=== PATIENT | male | born 1960 | race Caucasian/White ===

== ENCOUNTER 2017-12-18 16:49 | Inpatient (IN) | payer SELFPAY ==
[~2017-12-18] VITALS: Ht 175.3 cm; Wt 83.2 kg
[2017-12-18 17:36] LABS: Basophils # (auto) 0.1 uL; Basophils % (auto) 0.9 % (0.0-2.0); Eosinophils # (auto) 0.1 uL; Eosinophils % (auto) 0.6 % (0.0-7.0); Hemoglobin 15.2 g/dL (13.5-17.5); Lymphocytes # (auto) 2.7 uL; Mean Corpuscular Hemoglobin 31.2 pg (28.0-32.0); Mean Corpuscular Hgb Conc. 33.7 g/dL (32.0-36.0); Mean Corpuscular Volume 92.8 fL (80.0-100.0); Monocytes # (auto) 0.6 uL; Neutrophils # (auto) 7.9 uL; Neutrophils % (auto) 69.5 % (37.0-80.0); Nucleated Red Blood Cells % 0.1 %; Platelet Count (auto) 238 10^3/uL (140-450); Red Blood Cells 4.85 10^6/uL (4.5-5.90); Red Cell Distribution Width 14.7 % (11.8-14.3); White Blood Cell 11.3 10^3/uL (4.4-10.8)
[2017-12-18 17:52] LABS: Alanine Aminotransferase 30 U/L (16-61); Albumin 3.9 g/dL (3.4-5.0); Anion Gap 11 (5-15); Aspartate Aminotransferase 19 U/L (15-37); BUN/Creatinine Ratio 11.7; Blood Alcohol < 3.0 mg/dL (0-5); Blood Urea Nitrogen 11 mg/dL (7-18); Calcium 7.8 mg/dL (8.5-10.1); Carbon Dioxide 25 mmol/L (21-32); Chloride 94 mmol/L (98-107); GFR African American 107 mL/min; GFR Non-African American 89 mL/min; Glucose 86 mg/dL (74-106); Magnesium 1.9 mg/dL (1.6-2.6); Potassium 3.6 mmol/L (3.5-5.1); Sodium 130 mmol/L (136-145)
[2017-12-18 18:09] LABS: Alkaline Phosphatase 67 U/L (45-117); Bilirubin, Total 0.9 mg/dL (0.2-1.0); Total Protein 7.3 g/dL (6.4-8.2)
[2017-12-18 19:18] LABS: Alcohol, Urine < 3.0 mg/dL (0-5); Amphetamine Screen, Urine NEGATIVE (NEGATIVE); Barbiturate Scree,Urine NEGATIVE (NEGATIVE); Benzodiazephine Screen, Urine NEGATIVE (NEGATIVE); Cannabinoid Screen, Urine NEGATIVE (NEGATIVE); Cocaine Screen, Urine NEGATIVE (NEGATIVE); Opiate Scree,Urine NEGATIVE (NEGATIVE); Phencyclidine Screen, Urine NEGATIVE (NEGATIVE)
[2017-12-18 20:09] LABS: INR 1.03 (0.9-1.15); Partial Thromboplastin Time 27.2 sec (23.78-33.04)
[2017-12-18] MEDS ORDERED: THIAMINE 100mg/ml INJ (200mg/2ml VIAL) IV ONE (22:45)
[2017-12-18] MEDS ORDERED: LORazepam 2MG/ML-1ML VIAL IV ONE (22:45)
[2017-12-18] MEDS ORDERED: SODIUM CHLORIDE 0.9% 1,000 ML IV ONE (22:45)
[2017-12-18] MEDS ORDERED: HYDROcodone-ACET 5/325MG TAB PO PRN (23:00)
[2017-12-18] MEDS ORDERED: ACETAMINOPHEN 325 MG TAB PO PRN (23:00)
[2017-12-18] MEDS ORDERED: ONDANSETRON HCL 4 MG/2 ML VIAL IV PRN (23:00)
[2017-12-18 23:55] VITALS: BP 145/95
[2017-12-19] MEDS: chlordiazePOXIDE HCL 5 MG CAP PO PRN ×2 (00:29→08:30)
[2017-12-19] MEDS: TEMAZEPAM 15 MG CAP PO PRN ×2 (00:29→22:25)
[2017-12-19 04:40] VITALS: BP 104/56
[2017-12-19 07:20] LABS: Basophils # (auto) 0 uL; Basophils % (auto) 0.5 % (0.0-2.0); Eosinophils # (auto) 0.1 uL; Hematocrit 42.1 % (41.0-53.0); Hemoglobin 14.5 g/dL (13.5-17.5); Lymphocytes # (auto) 2.3 uL; Lymphocytes % (auto) 30.4 % (10.0-50.0); Mean Corpuscular Hgb Conc. 34.4 g/dL (32.0-36.0); Monocytes # (auto) 0.6 uL; Monocytes % (auto) 7.2 % (0.0-12.0); Neutrophils # (auto) 4.7 uL; Neutrophils % (auto) 60.9 % (37.0-80.0); Platelet Count (auto) 199 10^3/uL (140-450); Red Blood Cells 4.53 10^6/uL (4.5-5.90); Red Cell Distribution Width 14.6 % (11.8-14.3); White Blood Cell 7.7 10^3/uL (4.4-10.8)
[2017-12-19 07:36] LABS: Potassium 3.6 mmol/L (3.5-5.1)
[2017-12-19 07:43] LABS: Albumin 3.4 g/dL (3.4-5.0); BUN/Creatinine Ratio 15.6; Bilirubin, Total 1.2 mg/dL (0.2-1.0); Calcium 8.4 mg/dL (8.5-10.1); Total Protein 6.6 g/dL (6.4-8.2)
[2017-12-19 09:00] VITALS: BP 103/63
[2017-12-19] MEDS ORDERED: POTASSIUM CHL 20 Meq TABLET PO ONE (10:00)
[2017-12-19] MEDS: FOLIC ACID 1 MG TAB PO SCH (10:57)
[2017-12-19] MEDS: THIAMINE HCL 100 MG TAB PO SCH (10:57)
[2017-12-19] MEDS: FAMOTIDINE 20 MG TAB PO SCH ×2 (10:58→22:00)
[2017-12-19] MEDS: SODIUM CHLORIDE 0.9% 1,000 ML IV SCH ×2 (11:00→12:20)
[2017-12-19] MEDS: chlordiazePOXIDE HCL 25 MG CAP PO SCH ×2 (11:17→18:09)
[2017-12-19 13:00] VITALS: BP 137/81
[2017-12-19] MEDS ORDERED: LORA-654 PO (13:51)
[2017-12-19 17:00] VITALS: BP 133/87
[2017-12-19 21:46] VITALS: BP 107/74
[2017-12-20] MEDS: SODIUM CHLORIDE 0.9% 1,000 ML IV SCH ×2 (01:40→15:00)
[2017-12-20] MEDS: chlordiazePOXIDE HCL 25 MG CAP PO SCH ×3 (02:03→22:53)
[2017-12-20 04:54] VITALS: BP 105/62
[2017-12-20 07:37] LABS: BUN/Creatinine Ratio 13.9; Potassium 4.9 mmol/L (3.5-5.1)
[2017-12-20 08:00] VITALS: BP 135/75
[2017-12-20 08:42] VITALS: BP 135/75
[2017-12-20] MEDS: THIAMINE HCL 100 MG TAB PO SCH (10:24)
[2017-12-20] MEDS: FOLIC ACID 1 MG TAB PO SCH (10:24)
[2017-12-20] MEDS: FAMOTIDINE 20 MG TAB PO SCH ×2 (10:26→22:00)
[2017-12-20 10:54] VITALS: BP 125/78
[2017-12-20 16:29] VITALS: BP 141/83
[2017-12-20 22:00] VITALS: BP 117/45
[2017-12-21 05:33] VITALS: BP 123/66
[2017-12-21] MEDS: SODIUM CHLORIDE 0.9% 1,000 ML IV SCH ×2 (06:30→18:10)
[2017-12-21 08:28] VITALS: BP 132/74
[2017-12-21] MEDS ORDERED: chlordiazePOXIDE HCL 25 MG CAP PO SCH (10:00)
[2017-12-21] MEDS: FAMOTIDINE 20 MG TAB PO SCH ×3 (10:00→21:48)
[2017-12-21] MEDS: FOLIC ACID 1 MG TAB PO SCH (10:26)
[2017-12-21] MEDS: THIAMINE HCL 100 MG TAB PO SCH (10:27)
[2017-12-21] MEDS ORDERED: chlordiazePOXIDE HCL 25 MG CAP PO PRN (12:15)
[2017-12-21 12:48] VITALS: BP 110/69
[2017-12-21 16:34] VITALS: BP 111/74
[2017-12-21] MEDS: TEMAZEPAM 15 MG CAP PO PRN (21:48)
[2017-12-21 22:00] VITALS: BP 117/72
[2017-12-22 05:00] VITALS: BP 126/73
[2017-12-22] MEDS: SODIUM CHLORIDE 0.9% 1,000 ML IV SCH (06:31)
[2017-12-22 06:49] LABS: Basophils # (auto) 0.1 uL; Basophils % (auto) 0.7 % (0.0-2.0); Eosinophils # (auto) 0.2 uL; Eosinophils % (auto) 2.8 % (0.0-7.0); Hematocrit 41.7 % (41.0-53.0); Hemoglobin 14.2 g/dL (13.5-17.5); Lymphocytes # (auto) 2.4 uL; Lymphocytes % (auto) 29.2 % (10.0-50.0); Mean Corpuscular Hemoglobin 32.2 pg (28.0-32.0); Mean Corpuscular Hgb Conc. 34.2 g/dL (32.0-36.0); Mean Corpuscular Volume 94.1 fL (80.0-100.0); Monocytes # (auto) 0.6 uL; Monocytes % (auto) 7.3 % (0.0-12.0); Neutrophils # (auto) 4.9 uL; Platelet Count (auto) 202 10^3/uL (140-450); Red Blood Cells 4.43 10^6/uL (4.5-5.90); White Blood Cell 8.1 10^3/uL (4.4-10.8)
[2017-12-22] MEDS ORDERED: chlordiazePOXIDE HCL 25 MG CAP PO SCH (07:00)
[2017-12-22 07:09] LABS: BUN/Creatinine Ratio 16.7; Calcium 8.4 mg/dL (8.5-10.1)
[2017-12-22 09:13] VITALS: BP 129/75
[2017-12-22] MEDS: FAMOTIDINE 20 MG TAB PO SCH (10:00)
[2017-12-22] MEDS: FOLIC ACID 1 MG TAB PO SCH (10:00)
[2017-12-22] MEDS: THIAMINE HCL 100 MG TAB PO SCH (10:00)
== END 2017-12-22 12:50 | disposition home or self-care (01) | DRG 313 ==
LOC: ER 16:49 → EDBD 16:49 → OVERFLOW 16:50 → CENTRAL 23:36
PROVIDERS: ADMIT Nurse Practitioner; ATTEND Internal Medicine
DX: R07.9 Chest pain, unspecified (principal); F41.9 Anxiety disorder, unspecified; E83.51 Hypocalcemia; I12.9 Hypertensive chronic kidney disease with stage 1 through stage 4 chronic kidney disease, or unspecified chronic kidney disease; N18.2 Chronic kidney disease, stage 2 (mild); F10.10 Alcohol abuse, uncomplicated
CPT/HCPCS: 36415; 71045; 80048; 80053; 80307; 80320; 83735; 84484; 85025; 85379; 85610; 85730; 93005; 94761; 96360

== ENCOUNTER 2018-02-26 08:11 | Emergency (ER) | payer MEDICAID ==
[~2018-02-26] VITALS: Ht 177.8 cm; Wt 81.6 kg
[~2018-02-26 08:11] MED LIST: LORA-654 PO
[2018-02-26 09:57] LABS: Basophils # (auto) 0.1 uL; Basophils % (auto) 1.2 % (0.0-2.0); Eosinophils # (auto) 0.2 uL; Eosinophils % (auto) 2.1 % (0.0-7.0); Hematocrit 47.9 % (41.0-53.0); Lymphocytes # (auto) 2.1 uL; Lymphocytes % (auto) 23.6 % (10.0-50.0); Mean Corpuscular Hemoglobin 31.2 pg (28.0-32.0); Mean Corpuscular Hgb Conc. 33.3 g/dL (32.0-36.0); Mean Corpuscular Volume 93.7 fL (80.0-100.0); Monocytes # (auto) 0.6 uL; Monocytes % (auto) 6.8 % (0.0-12.0); Neutrophils # (auto) 5.9 uL; Neutrophils % (auto) 66.3 % (37.0-80.0); Nucleated Red Blood Cells % 0.1 %; Platelet Count (auto) 262 10^3/uL (140-450); Red Blood Cells 5.11 10^6/uL (4.5-5.90); White Blood Cell 8.8 10^3/uL (4.4-10.8)
[2018-02-26 10:02] LABS: Albumin 4.4 g/dL (3.4-5.0); Anion Gap 5 (5-15); Blood Urea Nitrogen 10 mg/dL (7-18); Carbon Dioxide 28 mmol/L (21-32); Chloride 102 mmol/L (98-107); Glucose 97 mg/dL (74-106); Potassium 4.7 mmol/L (3.5-5.1); Sodium 135 mmol/L (136-145)
[2018-02-26 10:07] LABS: Alanine Aminotransferase 34 U/L (16-61); Alkaline Phosphatase 71 U/L (45-117); Aspartate Aminotransferase 19 U/L (15-37); BUN/Creatinine Ratio 10.1; Bilirubin, Total 0.7 mg/dL (0.2-1.0); GFR African American 101 mL/min; GFR Non-African American 83 mL/min; Total Protein 8.2 g/dL (6.4-8.2)
[2018-02-26 10:29] LABS: INR 0.96 (0.9-1.15); Partial Thromboplastin Time 26.7 sec (23.78-33.04); Prothrombin Time 10.3 sec (9.27-12.13)
[2018-02-26] MEDS ORDERED: SODIUM CHLORIDE 0.9% 1,000 ML IV ONE ×2 (10:31)
[2018-02-26] MEDS ORDERED: chlordiazePOXIDE HCL 25 MG CAP PO ONE (10:45)
[2018-02-26] MEDS ORDERED: THIAMINE 100mg/ml INJ (200mg/2ml VIAL) IV ONE (10:45)
[2018-02-26] MEDS ORDERED: IBUPROFEN 400 MG TAB PO ONE (12:15)
[2018-02-26 12:19] VITALS: BP 142/85
== END 2018-02-26 13:00 | disposition home or self-care (01) ==
LOC: EDBD 08:11 → ER 08:11
DX: F10.129 Alcohol abuse with intoxication, unspecified (principal); F41.9 Anxiety disorder, unspecified; I10 Essential (primary) hypertension
CPT/HCPCS: 36415; 80053; 80320; 84484; 85025; 85379; 85610; 85730; 93005; 96374; 99284; J3411; J7030

== ENCOUNTER 2018-07-10 21:19 | Emergency (ER) | payer MEDICAID ==
[~2018-07-10] VITALS: Ht 177.8 cm; Wt 81.6 kg
[2018-07-10 22:09] LABS: Basophils # (auto) 0.1 uL; Basophils % (auto) 1.1 % (0.0-2.0); Eosinophils # (auto) 0.1 uL; Eosinophils % (auto) 0.9 % (0.0-7.0); Lymphocytes # (auto) 2.7 uL; Lymphocytes % (auto) 34.9 % (10.0-50.0); Mean Corpuscular Hemoglobin 31.6 pg (28.0-32.0); Mean Corpuscular Hgb Conc. 34.1 g/dL (32.0-36.0); Mean Corpuscular Volume 92.6 fL (80.0-100.0); Monocytes # (auto) 0.4 uL; Monocytes % (auto) 5.4 % (0.0-12.0); Neutrophils # (auto) 4.5 uL; Neutrophils % (auto) 57.7 % (37.0-80.0); Nucleated Red Blood Cells % 0.1 %; Platelet Count (auto) 264 10^3/uL (140-450); Red Blood Cells 4.75 10^6/uL (4.5-5.90); Red Cell Distribution Width 14.1 % (11.8-14.3); White Blood Cell 7.8 10^3/uL (4.4-10.8)
[2018-07-10 22:25] LABS: INR 0.98 (0.9-1.15); Partial Thromboplastin Time 27.3 sec (23.78-33.04); Prothrombin Time 10.5 sec (9.27-12.13)
[2018-07-10 22:29] LABS: Alanine Aminotransferase 30 U/L (16-61); Albumin 3.6 g/dL (3.4-5.0); Anion Gap 13 (5-15); Aspartate Aminotransferase 18 U/L (15-37); BUN/Creatinine Ratio 11.9; Blood Urea Nitrogen 10 mg/dL (7-18); Carbon Dioxide 20 mmol/L (21-32); Chloride 105 mmol/L (98-107); GFR African American 122 mL/min; GFR Non-African American 101 mL/min; Glucose 92 mg/dL (74-106); Potassium 3.5 mmol/L (3.5-5.1); Sodium 138 mmol/L (136-145)
[2018-07-10 22:35] LABS: Alkaline Phosphatase 66 U/L (45-117); Bilirubin, Total 0.9 mg/dL (0.2-1.0)
[2018-07-11 08:30] VITALS: BP 154/94
[2018-07-11 08:55] LABS: Alcohol, Urine < 3.0 mg/dL (0-5); Amphetamine Screen, Urine NEGATIVE (NEGATIVE); Barbiturate Scree,Urine NEGATIVE (NEGATIVE); Benzodiazephine Screen, Urine NEGATIVE (NEGATIVE); Cannabinoid Screen, Urine NEGATIVE (NEGATIVE); Cocaine Screen, Urine NEGATIVE (NEGATIVE); Opiate Scree,Urine NEGATIVE (NEGATIVE); Phencyclidine Screen, Urine NEGATIVE (NEGATIVE)
[2018-07-11] MEDS ORDERED: SODIUM CHLORIDE 0.9% 1,000 ML IV ONE (09:22)
[2018-07-11] MEDS ORDERED: THIAMINE 100mg/ml INJ (200mg/2ml VIAL) IM ONE (09:30)
[2018-07-11] MEDS ORDERED: chlordiazePOXIDE HCL 5 MG CAP PO ONE (09:45)
[2018-07-11] MEDS ORDERED: THIAMINE 100mg/ml INJ (200mg/2ml VIAL) IV ONE (09:45)
== END 2018-07-11 11:52 | disposition home or self-care (01) ==
LOC: EDBD 21:19 → ER 21:27
DX: R07.89 Other chest pain (principal); F10.229 Alcohol dependence with intoxication, unspecified; E03.9 Hypothyroidism, unspecified; I10 Essential (primary) hypertension
CPT/HCPCS: 36415; 71046; 80053; 80307; 80320; 83735; 83880; 84443; 84484; 85025; 85610; 85730; 93005; 96361; 96374; 99284; J3411; J7030

== ENCOUNTER 2018-12-14 11:11 | Emergency (ER) | payer MEDICAID ==
[~2018-12-14] VITALS: Ht 180.3 cm; Wt 77.1 kg
[~2018-12-14 11:11] MED LIST changes: -LORA-654 PO; +LORA0.5T12 PO
[2018-12-14] MEDS ORDERED: LORazepam 2MG/ML-1ML VIAL IV ONE ×2 (12:15→20:30)
[2018-12-14] MEDS ORDERED: SODIUM CHLORIDE 0.9% 1,000 ML IV ONE (12:15)
[2018-12-14 12:41] LABS: Basophils # (auto) 0.1 uL; Basophils % (auto) 0.6 % (0.0-2.0); Eosinophils # (auto) 0 uL; Hematocrit 46.5 % (41.0-53.0); Hemoglobin 15.9 g/dL (13.5-17.5); Lymphocytes # (auto) 2.1 uL; Lymphocytes % (auto) 15.1 % (10.0-50.0); Mean Corpuscular Hemoglobin 30.6 pg (28.0-32.0); Mean Corpuscular Hgb Conc. 34.2 g/dL (32.0-36.0); Mean Corpuscular Volume 89.5 fL (80.0-100.0); Monocytes # (auto) 0.8 uL; Monocytes % (auto) 5.9 % (0.0-12.0); Neutrophils # (auto) 11.1 uL; Neutrophils % (auto) 78.4 % (37.0-80.0); Platelet Count (auto) 303 10^3/uL (140-450); Red Cell Distribution Width 15.1 % (11.8-14.3); White Blood Cell 14.1 10^3/uL (4.4-10.8)
[2018-12-14 12:55] LABS: Albumin 3.9 g/dL (3.4-5.0); Calcium 8.1 mg/dL (8.5-10.1); Potassium 3.9 mmol/L (3.5-5.1)
[2018-12-14 12:59] LABS: BUN/Creatinine Ratio 22.2; Bilirubin, Total 0.8 mg/dL (0.2-1.0); Total Protein 8.1 g/dL (6.4-8.2)
[2018-12-14 13:04] LABS: Salicylate < 1.7 mg/dL (2.8-20.0)
[2018-12-14 13:07] LABS: Acetaminophen < 2.0 ug/mL (10-30)
[2018-12-14 14:06] LABS: Urine Bacteria NONE SEEN /hpf (None Seen); Urine Blood Negative /uL (Negative); Urine WBC <1 /hpf (0 - 3)
[2018-12-14 14:14] LABS: Amphetamine Screen, Urine NEGATIVE (NEGATIVE); Barbiturate Scree,Urine NEGATIVE (NEGATIVE); Benzodiazephine Screen, Urine NEGATIVE (NEGATIVE); Cannabinoid Screen, Urine NEGATIVE (NEGATIVE); Cocaine Screen, Urine NEGATIVE (NEGATIVE); Opiate Scree,Urine NEGATIVE (NEGATIVE); Phencyclidine Screen, Urine NEGATIVE (NEGATIVE)
[2018-12-14] MEDS ORDERED: THIAMINE 100mg/ml INJ (200mg/2ml VIAL) IV ONE (17:15)
[2018-12-14] MEDS ORDERED: FOLIC ACID 1 MG, MULTIPLE VITAMIN 10 ML, MAGNESIUM SULF SDV 50% 8 MEQ, THIAMINE INJ 100... INJ ONE ×5 (17:45)
[2018-12-14] MEDS ORDERED: PANTOPRAZOLE 40 MG TAB PO ONE (20:30)
[2018-12-15 05:05] VITALS: BP 132/78
[2018-12-15] MEDS ORDERED: FOLIC ACID 1 MG, MULTIPLE VITAMIN 10 ML, MAGNESIUM SULF SDV 50% 8 MEQ, THIAMINE INJ 100... INJ SCH ×5 (12:00)
== END 2018-12-15 04:59 | disposition home or self-care (01) ==
LOC: EDBD 11:11 → ER 11:11
DX: R07.89 Other chest pain (principal); F10.129 Alcohol abuse with intoxication, unspecified; R11.2 Nausea with vomiting, unspecified; Y90.7 Blood alcohol level of 200-239 mg/100 ml
CPT/HCPCS: 36415; 80053; 80307; 80320; 80329; 81001; 84484; 85025; 93005; 94761; 96361; 96365; 96366; 96375; 96376; 99284; J2060; J3411; J3475; J7030

== ENCOUNTER 2019-02-12 10:52 | Emergency (ER) | payer MEDICAID ==
[~2019-02-12] VITALS: Ht 152.4 cm; Wt 81.6 kg
[2019-02-12] MEDS ORDERED: SODIUM CHLORIDE 0.9% 1,000 ML IVB ONE (11:38)
[2019-02-12 12:59] LABS: Basophils # (auto) 0.1 uL; Basophils % (auto) 0.9 % (0.0-2.0); Eosinophils # (auto) 0.1 uL; Eosinophils % (auto) 0.9 % (0.0-7.0); Hematocrit 43.9 % (41.0-53.0); Hemoglobin 15.2 g/dL (13.5-17.5); Lymphocytes # (auto) 2.4 uL; Mean Corpuscular Hemoglobin 31.7 pg (28.0-32.0); Mean Corpuscular Hgb Conc. 34.6 g/dL (32.0-36.0); Mean Corpuscular Volume 91.5 fL (80.0-100.0); Monocytes # (auto) 0.4 uL; Monocytes % (auto) 4.7 % (0.0-12.0); Neutrophils # (auto) 5.6 uL; Neutrophils % (auto) 65.5 % (37.0-80.0); Nucleated Red Blood Cells % 0.4 %; Platelet Count (auto) 244 10^3/uL (140-450); Red Blood Cells 4.79 10^6/uL (4.5-5.90); Red Cell Distribution Width 15.1 % (11.8-14.3); White Blood Cell 8.5 10^3/uL (4.4-10.8)
[2019-02-12 13:06] LABS: Urine WBC None Seen /hpf (0 - 3)
[2019-02-12 13:30] LABS: Albumin 3.8 g/dL (3.4-5.0); Calcium 8.1 mg/dL (8.5-10.1)
[2019-02-12 13:33] LABS: BUN/Creatinine Ratio 17.6; Bilirubin, Total 0.8 mg/dL (0.2-1.0); Total Protein 7.1 g/dL (6.4-8.2)
[2019-02-12 13:36] LABS: Urine Bacteria NONE SEEN /hpf (None Seen); Urine Blood Negative /uL (Negative); Urine Specific Gravity 1.003 (1.001-1.035)
[2019-02-12 13:41] LABS: Amphetamine Screen, Urine NEGATIVE (NEGATIVE); Barbiturate Scree,Urine NEGATIVE (NEGATIVE); Benzodiazephine Screen, Urine NEGATIVE (NEGATIVE); Cannabinoid Screen, Urine NEGATIVE (NEGATIVE); Cocaine Screen, Urine NEGATIVE (NEGATIVE); Opiate Scree,Urine NEGATIVE (NEGATIVE); Phencyclidine Screen, Urine NEGATIVE (NEGATIVE)
[2019-02-12] MEDS ORDERED: LORazepam 0.5 MG TAB PO ONE ×2 (14:00→17:45)
[2019-02-12] MEDS ORDERED: LORazepam 2MG/ML-1ML VIAL IV ONE (14:00)
[2019-02-12] MEDS ORDERED: THIAMINE HCL 100 MG TAB PO ONE (14:30)
[2019-02-12] MEDS ORDERED: ONDANSETRON ODT 4 MG TAB PO ONE (17:45)
[2019-02-12] MEDS ORDERED: LISINOPRIL 10 MG TAB PO ONE (19:00)
[2019-02-12 20:47] VITALS: BP 143/81
[2019-02-13] MEDS ORDERED: FOLIC ACID 1 MG, MULTIPLE VITAMIN 10 ML, MAGNESIUM SULF SDV 50% 8 MEQ, THIAMINE INJ 100... INJ SCH ×5 (12:00)
== END 2019-02-12 20:53 | disposition home or self-care (01) ==
LOC: EDBD 10:52 → ER 10:59
DX: F13.239 Sedative, hypnotic or anxiolytic dependence with withdrawal, unspecified (principal); F10.10 Alcohol abuse, uncomplicated
CPT/HCPCS: 36415; 80053; 80307; 80320; 81001; 83735; 85025; 96374; 99284; J2060; J7030; Q0162

== ENCOUNTER 2019-08-10 16:02 | Inpatient (IN) | payer MEDICAID ==
[~2019-08-10] VITALS: Ht 175.3 cm; Wt 87.6 kg
[~2019-08-10 16:02] MED LIST changes: +FOLI1TAB6 PO; +METO25TA5 PO; +MULTTAB61 PO; +PANT40TA2 PO; +THIA50CA PO
[2019-08-10] MEDS ORDERED: SODIUM CHLORIDE 0.9% 1,000 ML IV ONE ×2 (16:08)
[2019-08-10] MEDS ORDERED: chlordiazePOXIDE HCL 5 MG CAP PO ONE (16:15)
[2019-08-10] MEDS ORDERED: THIAMINE 100mg/ml INJ (200mg/2ml VIAL) IV ONE (16:15)
[2019-08-10 16:37] LABS: Basophils # (auto) 0.1 10 ^3/uL (0-0.2); Basophils % (auto) 1.1 % (0.0-2.0); Eosinophils # (auto) 0 10 ^3/uL (0-0.8); Eosinophils % (auto) 0.3 % (0.0-7.0); Hematocrit 40.7 % (41.0-53.0); Hemoglobin 13.9 g/dL (13.5-17.5); Lymphocytes # (auto) 1.2 10 ^3/uL (0.4-5.4); Lymphocytes % (auto) 22.1 % (10.0-50.0); Mean Corpuscular Hemoglobin 31.1 pg (28.0-32.0); Mean Corpuscular Hgb Conc. 34.1 g/dL (32.0-36.0); Mean Corpuscular Volume 91.4 fL (80.0-100.0); Monocytes # (auto) 0.3 10 ^3/uL (0-1.3); Monocytes % (auto) 5.8 % (0.0-12.0); Neutrophils # (auto) 3.9 10 ^3/uL (1.6-8.6); Neutrophils % (auto) 70.7 % (37.0-80.0); Platelet Count (auto) 223 10^3/uL (140-450); Red Blood Cells 4.46 10^6/uL (4.5-5.90); Red Cell Distribution Width 14.1 % (11.8-14.3); White Blood Cell 5.6 10^3/uL (4.4-10.8)
[2019-08-10 16:53] LABS: Albumin 3.6 g/dL (3.4-5.0); Anion Gap 15 (5-15); Blood Urea Nitrogen 14 mg/dL (7-18); Calcium 7.5 mg/dL (8.5-10.1); Carbon Dioxide 20 mmol/L (21-32); Chloride 94 mmol/L (98-107); Glucose 69 mg/dL (74-106); Sodium 129 mmol/L (136-145)
[2019-08-10 16:58] LABS: Alanine Aminotransferase 64 U/L (16-61); Alkaline Phosphatase 66 U/L (45-117); Aspartate Aminotransferase 83 U/L (15-37); BUN/Creatinine Ratio 15.9; Bilirubin, Total 0.8 mg/dL (0.2-1.0); GFR African American 115 mL/min; GFR Non-African American 95 mL/min; Total Protein 7.1 g/dL (6.4-8.2)
[2019-08-10 18:02] LABS: Urine WBC None Seen /hpf (0 - 3)
[2019-08-10 18:19] LABS: Urine Bacteria NONE SEEN /hpf (None Seen); Urine Blood Negative /uL (Negative); Urine Specific Gravity 1.005 (1.001-1.035)
[2019-08-10] MEDS ORDERED: MORPHINE SULF INJ 2 MG/ML SYRINGE 1ML IV PRN ×3 (18:45→21:00)
[2019-08-10] MEDS ORDERED: NITROGLYCERIN 0.4 MG SL TAB SL PRN ×2 (18:45→21:00)
[2019-08-10] MEDS ORDERED: LORazepam 2MG/ML-1ML VIAL IV ONE (19:15)
[2019-08-10 20:42] VITALS: BP 133/76
--- NOTE | 2019-08-10 20:42 | NUR ---
Telemetry admit from ER Patient admitted to Telemetry unit. Patient oriented to primary RN, unit, room, bed, and unit policies regarding patient care and visiting hours. Patient now on continuous telemetry monitoring, tele box #[id number] and telemetry reading on arrival to unit is sinus rhythm. Patient weighed by bedscale and encouraged to call if they need something. All questions and concerns addressed, patient verbalized understanding. Safety precautions maintained bed is in lowest position and locked, bed rails 2x. Call light and bedside table are within reach.
[2019-08-10] MEDS ORDERED: SOD CHL 0.45% 1,000 ML IV SCH (20:57)
[2019-08-10] MEDS ORDERED: METOCLOPRAMIDE HCL 5MG/ml INJ 2ml VIAL IV PRN (21:00)
[2019-08-10] MEDS ORDERED: ALUM & MAG HYDROX-SIMETH LIQ(MAALOX) 30 ML PO PRN (21:00)
[2019-08-10] MEDS ORDERED: TEMAZEPAM 15 MG CAP PO PRN (21:00)
[2019-08-10] MEDS ORDERED: HYDROcodone-ACET 5/325MG TAB PO PRN (21:00)
[2019-08-10] MEDS ORDERED: DOCUSATE SOD 100 MG CAP PO PRN (21:00)
[2019-08-10] MEDS ORDERED: LORazepam 2MG/ML-1ML VIAL IV PRN (21:00)
[2019-08-10] MEDS ORDERED: THIAMINE HCL 100 MG TAB PO ONE (21:00)
[2019-08-10] MEDS: METOPROLOL TARTRATE 25 MG TAB PO SCH (21:39)
[2019-08-10 22:00] VITALS: BP 133/76
[2019-08-11 05:00] VITALS: BP 120/68
--- NOTE | 2019-08-11 07:28 | NUR ---
End of Shift Note Endorsed care to dayshift RN. At this time no s/s of distress or SOB, no complaints, patient responsive to name and touch.
[2019-08-11] MEDS: LORazepam 0.5 MG TAB PO SCH ×2 (07:51→14:00)
[2019-08-11 09:05] VITALS: BP 124/74
[2019-08-11] MEDS: METOPROLOL TARTRATE 25 MG TAB PO SCH (09:31)
[2019-08-11] MEDS ORDERED: MULTIPLE VITAMIN TAB PO SCH (10:00)
[2019-08-11] MEDS ORDERED: PANTOPRAZOLE 40 MG TAB PO SCH (10:00)
[2019-08-11] MEDS ORDERED: ENOXAPARIN SOD 40 MG/0.4 ML SYRINGE SC SCH (10:00)
[2019-08-11] MEDS ORDERED: FOLIC ACID 1 MG TAB PO SCH (10:00)
[2019-08-11] MEDS ORDERED: THIAMINE HCL 100 MG TAB PO SCH (10:00)
--- NOTE | 2019-08-11 11:30 | NUR ---
spoke with Dr. Nichole per Dr. Nichole if sodium is okay patient can go home.
[2019-08-11 11:51] LABS: Albumin 3.8 g/dL (3.4-5.0); Calcium 8.5 mg/dL (8.5-10.1); Potassium 3.9 mmol/L (3.5-5.1)
[2019-08-11 11:54] LABS: BUN/Creatinine Ratio 16.5; Bilirubin, Total 1.4 mg/dL (0.2-1.0); Total Protein 7.2 g/dL (6.4-8.2)
[2019-08-11 12:53] VITALS: BP 115/79
[2019-08-11 13:00] VITALS: BP 115/79
--- NOTE | 2019-08-11 13:43 | NUR ---
assessment re: ss consult ETOH use Patient is a 59 year old male who is alert and oriented. Patients cognitive abilities are intact. Prior to admission patient lived home with family and functioned independently. Patient informed me he is able to care for his own ADLs. Per patient he will return home to his prior living arrangements post discharge and family will transport him home. I informed patient of his ss consult for ETOH use. Patient informed me he has been drinking heavily for the past week, a fifth per day. I have provided patient with resources for inpatient and outpatient ETOH rehab facilities and also . Patient accepted resources. I informed patient he has a right to speak to a social group worker regarding all care. I informed patient he has a right to participate in any and all discharge planning. Patient does not have a POA and advanced directive. I have offered patient information on POA and advanced directives. I informed the patient the advantages and benefits of having an Advanced Directive. Patient verbalized understanding and agreed to discharge plan. Addendum: 08/11/19 at 1346 by Yvonne KEBEDE Amended: Links added.
--- NOTE | 2019-08-11 14:05 | NUR ---
Discharge instructions given as ordered. Encourage to follow up with Dr. Do in 1 week, pt will make his appointment, office is close for lunch. All questions and concerns addressed. Patient verbalized understanding. Medication reconciliation form completed and copy given to patient. IV removed with catheter intact, pressure dressing applied. Telemetry unit returned to ICU. Patient taken to vehicle via wheelchair with all personal belongings, accompanied by staff and family member. No distress noted at time of departure.
[2019-08-11 14:21] LABS: Urine Bacteria NONE SEEN /hpf (None Seen); Urine Blood Negative /uL (Negative); Urine Specific Gravity 1.022 (1.001-1.035); Urine WBC 1 /hpf (0 - 3)
[2019-08-11 14:34] LABS: Amphetamine Screen, Urine NEGATIVE (NEGATIVE); Barbiturate Scree,Urine NEGATIVE (NEGATIVE); Benzodiazephine Screen, Urine POSITIVE (NEGATIVE); Cannabinoid Screen, Urine NEGATIVE (NEGATIVE); Cocaine Screen, Urine NEGATIVE (NEGATIVE); Phencyclidine Screen, Urine NEGATIVE (NEGATIVE)
[2019-08-11 14:42] LABS: Opiate Scree,Urine NEGATIVE (NEGATIVE)
[2019-08-12] MEDS ORDERED: LORazepam 0.5 MG TAB PO SCH (08:00)
[2019-08-13] MEDS ORDERED: LORazepam 0.5 MG TAB PO SCH (08:00)
== END 2019-08-11 14:05 | disposition home or self-care (01) | DRG 775 ==
LOC: ER 16:02 → EDBD 16:02 → TELE 16:03 → TELE-CENTR 20:40
PROVIDERS: ADMIT Hospitalist; ATTEND Internal Medicine
DX: F10.239 Alcohol dependence with withdrawal, unspecified (principal); F10.229 Alcohol dependence with intoxication, unspecified; K70.10 Alcoholic hepatitis without ascites; E87.1 Hypo-osmolality and hyponatremia; E86.0 Dehydration; K29.20 Alcoholic gastritis without bleeding; F41.9 Anxiety disorder, unspecified; F32.9 Major depressive disorder, single episode, unspecified; I10 Essential (primary) hypertension; Z79.899 Other long term (current) drug therapy; Z82.49 Family history of ischemic heart disease and other diseases of the circulatory system
CPT/HCPCS: 36415; 71045; 80053; 80307; 81001; 84484; 85025; 93005; 96361; 96374; 96375; G0378

== ENCOUNTER 2019-11-25 11:41 | Inpatient (IN) | payer MEDICAID ==
[~2019-11-25] VITALS: Ht 175.3 cm; Wt 90.7 kg
[~2019-11-25 11:41] MED LIST changes: -LORA0.5T12 PO; +LORA0.5T20 PO; +MULT-1018 PO; -MULTTAB61 PO
[2019-11-25] MEDS ORDERED: SODIUM CHLORIDE 0.9% 1,000 ML IVB ONE (12:20)
[2019-11-25] MEDS ORDERED: FOLIC ACID 1 MG, MULTIPLE VITAMIN 10 ML, MAGNESIUM SULF SDV 50% 8 MEQ, THIAMINE INJ 100... INJ STA ×5 (12:20)
[2019-11-25] MEDS ORDERED: THIAMINE HCL 100 MG TAB PO ONE (12:30)
[2019-11-25 13:15] LABS: Basophils # (auto) 0.1 10 ^3/uL (0-0.2); Eosinophils # (auto) 0 10 ^3/uL (0-0.8); Eosinophils % (auto) 0.7 % (0.0-7.0); Hematocrit 44.3 % (41.0-53.0); Hemoglobin 14.8 g/dL (13.5-17.5); Lymphocytes # (auto) 1.5 10 ^3/uL (0.4-5.4); Lymphocytes % (auto) 22.1 % (10.0-50.0); Mean Corpuscular Hemoglobin 31.3 pg (28.0-32.0); Mean Corpuscular Hgb Conc. 33.4 g/dL (32.0-36.0); Mean Corpuscular Volume 93.9 fL (80.0-100.0); Monocytes # (auto) 0.3 10 ^3/uL (0-1.3); Monocytes % (auto) 4.4 % (0.0-12.0); Neutrophils % (auto) 71.8 % (37.0-80.0); Platelet Count (auto) 240 10^3/uL (140-450); Red Blood Cells 4.71 10^6/uL (4.5-5.90); Red Cell Distribution Width 15.3 % (11.8-14.3); White Blood Cell 6.9 10^3/uL (4.4-10.8)
[2019-11-25 13:40] LABS: Alanine Aminotransferase 94 U/L (16-61); Albumin 3.8 g/dL (3.4-5.0); Anion Gap 14 (5-15); Aspartate Aminotransferase 85 U/L (15-37); BUN/Creatinine Ratio 14.3; Blood Urea Nitrogen 14 mg/dL (7-18); Calcium 8.1 mg/dL (8.5-10.1); Carbon Dioxide 21 mmol/L (21-32); Chloride 103 mmol/L (98-107); GFR African American 101 mL/min; GFR Non-African American 84 mL/min; Glucose 75 mg/dL (74-106); Magnesium 1.8 mg/dL (1.6-2.6); Sodium 138 mmol/L (136-145)
[2019-11-25 13:45] LABS: Alkaline Phosphatase 68 U/L (45-117); Bilirubin, Total 0.7 mg/dL (0.2-1.0); Total Protein 7.6 g/dL (6.4-8.2)
[2019-11-25] MEDS ORDERED: LORazepam 2MG/ML-1ML VIAL IV ONE (15:30)
[2019-11-25] MEDS ORDERED: chlordiazePOXIDE HCL 25 MG CAP PO PRN (15:45)
[2019-11-25] MEDS ORDERED: MORPHINE SULF INJ 2 MG/ML SYRINGE 1ML IV PRN (15:45)
[2019-11-25] MEDS ORDERED: THIAMINE 100mg/ml INJ (200mg/2ml VIAL) IV ONE (15:45)
[2019-11-25] MEDS ORDERED: NITROGLYCERIN 0.4 MG SL TAB SL PRN (15:45)
[2019-11-25] MEDS ORDERED: PROMETHAZINE HCL 25 MG/ML 1ML IV PRN (17:00)
[2019-11-25] MEDS ORDERED: TEMAZEPAM 15 MG CAP PO PRN (17:00)
[2019-11-25] MEDS: SODIUM CHLORIDE 0.9% 1,000 ML IV SCH (18:13)
[2019-11-25] MEDS: ENOXAPARIN SOD 40 MG/0.4 ML SYRINGE SC SCH (18:14)
[2019-11-25] MEDS: chlordiazePOXIDE HCL 5 MG CAP PO SCH ×2 (18:14→23:19)
[2019-11-25 19:21] LABS: Amylase 35 U/L (25-115); CRP High Sensitivity 0.13 mg/dL (< 0.3); Lipase 206 U/L (73-393)
[2019-11-25] MEDS: traMADol HCL 50 MG TAB PO PRN (19:53)
[2019-11-25 20:26] LABS: INR 1.01 (0.9-1.15); Partial Thromboplastin Time 26.9 sec (23.0-31.2)
[2019-11-25 22:00] VITALS: BP 143/89
[2019-11-25] MEDS: FAMOTIDINE 20 MG TAB PO SCH (23:09)
[2019-11-25] MEDS: METOPROLOL TARTRATE 25 MG TAB PO SCH (23:09)
[2019-11-25] MEDS: MORPHINE SULF INJ 2 MG/ML SYRINGE 1ML IV PRN (23:11)
[2019-11-26] MEDS: SODIUM CHLORIDE 0.9% 1,000 ML IV SCH ×3 (00:46→16:46)
[2019-11-26 05:02] VITALS: BP 148/93
[2019-11-26] MEDS: chlordiazePOXIDE HCL 5 MG CAP PO SCH ×4 (05:40→23:23)
[2019-11-26 06:48] LABS: Potassium 3.7 mmol/L (3.5-5.1)
[2019-11-26 07:07] LABS: Albumin 3.5 g/dL (3.4-5.0); BUN/Creatinine Ratio 21.9; Bilirubin, Total 1.4 mg/dL (0.2-1.0); Calcium 8.9 mg/dL (8.5-10.1); Total Protein 6.9 g/dL (6.4-8.2)
[2019-11-26] MEDS: traMADol HCL 50 MG TAB PO PRN (07:11)
[2019-11-26 08:27] VITALS: BP 159/86
[2019-11-26] MEDS: FAMOTIDINE 20 MG TAB PO SCH ×2 (08:39→21:49)
[2019-11-26] MEDS: ASPirin 81 mg TAB PO SCH (08:39)
[2019-11-26] MEDS: METOPROLOL TARTRATE 25 MG TAB PO SCH ×2 (08:40→21:49)
[2019-11-26] MEDS: ENOXAPARIN SOD 40 MG/0.4 ML SYRINGE SC SCH (08:41)
[2019-11-26] MEDS: NITROGLYCERIN 0.2MG/HR TOPICAL PATCH TD SCH (08:43)
[2019-11-26] MEDS ORDERED: THIAMINE 100mg/ml INJ (200mg/2ml VIAL) IV SCH (10:00)
[2019-11-26] MEDS ORDERED: PANTOPRAZOLE 40 MG TAB PO ONE (12:15)
[2019-11-26 13:00] VITALS: BP 127/84
[2019-11-26] MEDS: FOLIC ACID 1 MG, MULTIPLE VITAMIN 10 ML, MAGNESIUM SULF SDV 50% 8 MEQ, THIAMINE INJ 100... INJ SCH ×5 (13:29)
[2019-11-26] MEDS: SUCRALFATE 1 GM/10 ML ORAL SUSP PO SCH ×2 (16:55→21:49)
[2019-11-26 17:00] VITALS: BP 131/84
[2019-11-26 22:02] VITALS: BP 141/98
[2019-11-27] MEDS: SODIUM CHLORIDE 0.9% 1,000 ML IV SCH ×3 (00:46→16:38)
[2019-11-27 05:14] VITALS: BP 138/89
[2019-11-27 05:23] LABS: Basophils # (auto) 0 10 ^3/uL (0-0.2); Basophils % (auto) 0.7 % (0.0-2.0); Eosinophils # (auto) 0.1 10 ^3/uL (0-0.8); Eosinophils % (auto) 2.6 % (0.0-7.0); Hematocrit 40.4 % (41.0-53.0); Hemoglobin 13.6 g/dL (13.5-17.5); Lymphocytes # (auto) 1.8 10 ^3/uL (0.4-5.4); Mean Corpuscular Hemoglobin 31.9 pg (28.0-32.0); Mean Corpuscular Hgb Conc. 33.7 g/dL (32.0-36.0); Mean Corpuscular Volume 94.5 fL (80.0-100.0); Monocytes # (auto) 0.3 10 ^3/uL (0-1.3); Monocytes % (auto) 7.7 % (0.0-12.0); Neutrophils # (auto) 1.8 10 ^3/uL (1.6-8.6); Platelet Count (auto) 193 10^3/uL (140-450); Red Blood Cells 4.28 10^6/uL (4.5-5.90)
[2019-11-27 05:39] LABS: BUN/Creatinine Ratio 11.8; Calcium 8.9 mg/dL (8.5-10.1); Potassium 3.8 mmol/L (3.5-5.1)
[2019-11-27] MEDS: chlordiazePOXIDE HCL 5 MG CAP PO SCH ×4 (06:00→23:35)
[2019-11-27] MEDS: SUCRALFATE 1 GM/10 ML ORAL SUSP PO SCH ×4 (06:39→22:00)
[2019-11-27] MEDS: traMADol HCL 50 MG TAB PO PRN (06:39)
[2019-11-27 08:00] VITALS: BP 140/90
[2019-11-27 08:40] VITALS: BP 140/90
[2019-11-27] MEDS: NITROGLYCERIN 0.2MG/HR TOPICAL PATCH TD SCH (10:00)
[2019-11-27] MEDS ORDERED: PANTOPRAZOLE 40 MG TAB PO SCH (10:00)
[2019-11-27] MEDS: ASPirin 81 mg TAB PO SCH (10:22)
[2019-11-27] MEDS: FAMOTIDINE 20 MG TAB PO SCH (10:22)
[2019-11-27] MEDS: ENOXAPARIN SOD 40 MG/0.4 ML SYRINGE SC SCH (10:23)
[2019-11-27] MEDS: METOPROLOL TARTRATE 25 MG TAB PO SCH ×2 (10:23→22:19)
[2019-11-27] MEDS: FOLIC ACID 1 MG, MULTIPLE VITAMIN 10 ML, MAGNESIUM SULF SDV 50% 8 MEQ, THIAMINE INJ 100... INJ SCH ×5 (12:54)
[2019-11-27 13:00] VITALS: BP 153/101
[2019-11-27 16:40] VITALS: BP 177/107
[2019-11-27] MEDS: MORPHINE SULF INJ 2 MG/ML SYRINGE 1ML IV PRN (18:41)
[2019-11-27 22:00] VITALS: BP 145/82
[2019-11-27] MEDS: PANTOPRAZOLE 40 MG TAB PO SCH (22:19)
[2019-11-28] MEDS: SODIUM CHLORIDE 0.9% 1,000 ML IV SCH ×2 (00:46→08:22)
[2019-11-28] MEDS: traMADol HCL 50 MG TAB PO PRN (03:57)
[2019-11-28 05:00] VITALS: BP 136/82
[2019-11-28] MEDS: chlordiazePOXIDE HCL 5 MG CAP PO SCH ×2 (06:00→13:53)
[2019-11-28 06:25] LABS: Basophils # (auto) 0 10 ^3/uL (0-0.2); Basophils % (auto) 0.8 % (0.0-2.0); Eosinophils # (auto) 0.1 10 ^3/uL (0-0.8); Eosinophils % (auto) 2.7 % (0.0-7.0); Hematocrit 41.6 % (41.0-53.0); Lymphocytes # (auto) 1.6 10 ^3/uL (0.4-5.4); Lymphocytes % (auto) 32.6 % (10.0-50.0); Mean Corpuscular Hemoglobin 32.1 pg (28.0-32.0); Mean Corpuscular Hgb Conc. 33.6 g/dL (32.0-36.0); Mean Corpuscular Volume 95.4 fL (80.0-100.0); Monocytes # (auto) 0.5 10 ^3/uL (0-1.3); Monocytes % (auto) 9.9 % (0.0-12.0); Neutrophils # (auto) 2.7 10 ^3/uL (1.6-8.6); Platelet Count (auto) 207 10^3/uL (140-450); Red Blood Cells 4.36 10^6/uL (4.5-5.90); Red Cell Distribution Width 15.8 % (11.8-14.3)
[2019-11-28] MEDS: SUCRALFATE 1 GM/10 ML ORAL SUSP PO SCH ×2 (06:32→11:11)
[2019-11-28 06:58] LABS: Potassium 3.8 mmol/L (3.5-5.1)
[2019-11-28 07:12] LABS: BUN/Creatinine Ratio 13.8; Calcium 9.2 mg/dL (8.5-10.1)
[2019-11-28 08:00] VITALS: BP 133/75
[2019-11-28] MEDS ORDERED: MIDAZOLAM HCL 5 MG/ML-1ML VIAL ONE (08:27)
[2019-11-28] MEDS ORDERED: fentaNYL CITRATE 100 MCG/2 ML VL ONE (08:27)
[2019-11-28] MEDS ORDERED: diphenhdrAMINE HCL 50 MG/1 ML VL ONE (08:27)
[2019-11-28] MEDS ORDERED: LIDOCAINE VISCOUS 2% 15ML UD ONE (08:27)
[2019-11-28] MEDS ORDERED: SODIUM CHLORIDE LOCK 10 ML ONE (08:27)
[2019-11-28 08:57] VITALS: BP 133/75
[2019-11-28] MEDS: ASPirin 81 mg TAB PO SCH (09:51)
[2019-11-28] MEDS: NITROGLYCERIN 0.2MG/HR TOPICAL PATCH TD SCH (10:00)
[2019-11-28] MEDS: ENOXAPARIN SOD 40 MG/0.4 ML SYRINGE SC SCH (10:02)
[2019-11-28] MEDS: PANTOPRAZOLE 40 MG TAB PO SCH (10:02)
[2019-11-28] MEDS: METOPROLOL TARTRATE 25 MG TAB PO SCH (10:02)
[2019-11-28 10:40] VITALS: BP 133/75
[2019-11-28] MEDS: FOLIC ACID 1 MG, MULTIPLE VITAMIN 10 ML, MAGNESIUM SULF SDV 50% 8 MEQ, THIAMINE INJ 100... INJ SCH ×5 (11:11)
[2019-11-28 13:00] VITALS: BP 137/96
== END 2019-11-28 14:30 | disposition home or self-care (01) | DRG 775 ==
LOC: ER 11:41 → EDBD 11:41 → TELE 11:42 → TELE-WESTW 19:28
PROVIDERS: ADMIT Internal Medicine; ATTEND Internal Medicine
DX: F10.121 Alcohol abuse with intoxication delirium (principal); R65.10 Systemic inflammatory response syndrome (SIRS) of non-infectious origin without acute organ dysfunction; Z20.828 Contact with and (suspected) exposure to other viral communicable diseases; Y90.8 Blood alcohol level of 240 mg/100 ml or more; K29.20 Alcoholic gastritis without bleeding; F32.9 Major depressive disorder, single episode, unspecified; E78.5 Hyperlipidemia, unspecified; E03.9 Hypothyroidism, unspecified; I10 Essential (primary) hypertension; E66.9 Obesity, unspecified; F41.9 Anxiety disorder, unspecified; K76.0 Fatty (change of) liver, not elsewhere classified; K70.9 Alcoholic liver disease, unspecified; Z68.29 Body mass index [BMI] 29.0-29.9, adult; Z82.0 Family history of epilepsy and other diseases of the nervous system; Z82.49 Family history of ischemic heart disease and other diseases of the circulatory system
CPT/HCPCS: 36415; 71045; 76705; 80048; 80053; 80061; 80320; 82150; 82550; 82962; 83690; 83735; 84443; 84484; 85025; 85379; 85610; 85652; 85730; 86141; 87426; 93005; 93306; G0378; J2250

== ENCOUNTER 2019-12-21 01:15 | Emergency (ER) | payer MEDICAID ==
[~2019-12-21] VITALS: Ht 172.7 cm; Wt 99.8 kg
[~2019-12-21 01:15] MED LIST changes: -FOLI1TAB6 PO; -LORA0.5T20 PO; -MULT-1018 PO; -PANT40TA2 PO; -THIA50CA PO
[2019-12-21 01:40] LABS: Basophils # (auto) 0.1 10 ^3/uL (0-0.2); Basophils % (auto) 0.9 % (0.0-2.0); Eosinophils # (auto) 0 10 ^3/uL (0-0.8); Eosinophils % (auto) 0.1 % (0.0-7.0); Hematocrit 42.1 % (41.0-53.0); Hemoglobin 14.5 g/dL (13.5-17.5); Lymphocytes # (auto) 1.3 10 ^3/uL (0.4-5.4); Lymphocytes % (auto) 12.8 % (10.0-50.0); Mean Corpuscular Hemoglobin 32.2 pg (28.0-32.0); Mean Corpuscular Hgb Conc. 34.5 g/dL (32.0-36.0); Mean Corpuscular Volume 93.4 fL (80.0-100.0); Monocytes # (auto) 0.5 10 ^3/uL (0-1.3); Monocytes % (auto) 5.1 % (0.0-12.0); Neutrophils % (auto) 81.1 % (37.0-80.0); Platelet Count (auto) 252 10^3/uL (140-450); Red Blood Cells 4.51 10^6/uL (4.5-5.90); Red Cell Distribution Width 15.7 % (11.8-14.3); White Blood Cell 9.9 10^3/uL (4.4-10.8)
[2019-12-21 01:54] LABS: INR 0.97 (0.9-1.15)
[2019-12-21 01:55] LABS: Albumin 4.1 g/dL (3.4-5.0); Calcium 8.4 mg/dL (8.5-10.1); Potassium 3.8 mmol/L (3.5-5.1)
[2019-12-21 01:58] LABS: Total Protein 7.8 g/dL (6.4-8.2)
[2019-12-21] MEDS ORDERED: ACETAMINOPHEN 325 MG TAB PO ONE (04:30)
[2019-12-21] MEDS ORDERED: LORazepam 2MG/ML-1ML VIAL IV ONE (04:30)
[2019-12-21 05:03] LABS: Urine Bacteria NONE SEEN /hpf (None Seen); Urine Blood 1+ /uL (Negative); Urine Hyaline Cast FEW /lpf (0 - 2); Urine Mucus FEW (None Seen); Urine Specific Gravity 1.026 (1.001-1.035); Urine WBC <1 /hpf (0 - 3)
[2019-12-21 05:17] LABS: Amphetamine Screen, Urine NEGATIVE (NEGATIVE); Barbiturate Scree,Urine NEGATIVE (NEGATIVE); Benzodiazephine Screen, Urine NEGATIVE (NEGATIVE); Cannabinoid Screen, Urine NEGATIVE (NEGATIVE); Cocaine Screen, Urine NEGATIVE (NEGATIVE); Opiate Scree,Urine NEGATIVE (NEGATIVE); Phencyclidine Screen, Urine NEGATIVE (NEGATIVE)
[2019-12-21] MEDS ORDERED: THIAMINE 100mg/ml INJ (200mg/2ml VIAL) IV ONE (08:00)
[2019-12-21] MEDS ORDERED: SODIUM CHLORIDE 0.9% 1,000 ML IV ONE ×2 (08:00)
[2019-12-21 08:33] VITALS: BP 132/80
== END 2019-12-21 09:16 | disposition home or self-care (01) ==
LOC: EDBD 01:15 → ER 01:19
DX: F10.129 Alcohol abuse with intoxication, unspecified (principal); E86.0 Dehydration; I10 Essential (primary) hypertension; Y90.9 Presence of alcohol in blood, level not specified
CPT/HCPCS: 36415; 80053; 80307; 80320; 81001; 83735; 85025; 85610; 85730; 96361; 96374; 96375; 99285; J2060; J3411; J7030

== ENCOUNTER 2020-02-01 07:14 | Emergency (ER) | payer MEDICAID ==
[~2020-02-01] VITALS: Ht 175.3 cm; Wt 90.7 kg
[2020-02-01] MEDS ORDERED: ASPirin 81 mg TAB PO ONE (07:45)
[2020-02-01 08:18] LABS: Basophils # (auto) 0.1 10 ^3/uL (0-0.2); Basophils % (auto) 1.3 % (0.0-2.0); Eosinophils # (auto) 0 10 ^3/uL (0-0.8); Eosinophils % (auto) 0.4 % (0.0-7.0); Hematocrit 45.9 % (41.0-53.0); Hemoglobin 15.3 g/dL (13.5-17.5); Lymphocytes # (auto) 1.5 10 ^3/uL (0.4-5.4); Lymphocytes % (auto) 18.2 % (10.0-50.0); Mean Corpuscular Hemoglobin 31.9 pg (28.0-32.0); Mean Corpuscular Hgb Conc. 33.4 g/dL (32.0-36.0); Mean Corpuscular Volume 95.5 fL (80.0-100.0); Monocytes # (auto) 0.7 10 ^3/uL (0-1.3); Monocytes % (auto) 8.1 % (0.0-12.0); Neutrophils # (auto) 5.9 10 ^3/uL (1.6-8.6); Nucleated Red Blood Cells % 0.2 %; Platelet Count (auto) 378 10^3/uL (140-450); Red Cell Distribution Width 16.2 % (11.8-14.3); White Blood Cell 8.2 10^3/uL (4.4-10.8)
[2020-02-01 08:22] LABS: Alanine Aminotransferase 141 U/L (16-61); Anion Gap 16 (5-15); Aspartate Aminotransferase 108 U/L (15-37); BUN/Creatinine Ratio 11.6; Blood Urea Nitrogen 11 mg/dL (7-18); Calcium 8.4 mg/dL (8.5-10.1); Carbon Dioxide 21 mmol/L (21-32); Chloride 99 mmol/L (98-107); GFR African American 105 mL/min; GFR Non-African American 87 mL/min; Glucose 77 mg/dL (74-106); Potassium 3.9 mmol/L (3.5-5.1); Sodium 136 mmol/L (136-145)
[2020-02-01 08:29] LABS: Alkaline Phosphatase 94 U/L (45-117); Bilirubin, Total 0.9 mg/dL (0.2-1.0); Total Protein 8.3 g/dL (6.4-8.2)
[2020-02-01] MEDS ORDERED: SODIUM CHLORIDE 0.9% 1,000 ML IV ONE ×2 (08:45)
[2020-02-01] MEDS ORDERED: chlordiazePOXIDE HCL 25 MG CAP PO ONE (08:45)
[2020-02-01] MEDS ORDERED: THIAMINE 100mg/ml INJ (200mg/2ml VIAL) IV ONE (08:45)
[2020-02-01] MEDS ORDERED: LORazepam 2MG/ML-1ML VIAL IV ONE (09:30)
[2020-02-01 11:04] VITALS: BP 132/80
== END 2020-02-01 11:44 | disposition home or self-care (01) ==
LOC: EDBD 07:14 → ER 07:14
DX: R07.89 Other chest pain (principal); E86.0 Dehydration; F10.239 Alcohol dependence with withdrawal, unspecified; I10 Essential (primary) hypertension; Y90.8 Blood alcohol level of 240 mg/100 ml or more
CPT/HCPCS: 36415; 71045; 80053; 80320; 84443; 84484; 85025; 93005; 96361; 96374; 96375; 99285; J2060; J3411; J7030

== ENCOUNTER 2020-06-24 16:59 | Emergency (ER) | payer MEDICAID ==
[~2020-06-24] VITALS: Ht 182.9 cm; Wt 108.9 kg
[2020-06-24] MEDS ORDERED: FOLIC ACID 1 MG, MULTIPLE VITAMIN 10 ML, MAGNESIUM SULF SDV 50% 8 MEQ, THIAMINE INJ 100... INJ ONE ×5 (17:15)
[2020-06-24] MEDS ORDERED: LORazepam 2MG/ML-1ML VIAL IM ONE (17:15)
[2020-06-24 19:49] LABS: Basophils # (auto) 0.1 10 ^3/uL (0-0.2); Eosinophils # (auto) 0 10 ^3/uL (0-0.8); Eosinophils % (auto) 0.6 % (0.0-7.0); Hematocrit 42.4 % (41.0-53.0); Hemoglobin 14.6 g/dL (13.5-17.5); Lymphocytes # (auto) 1.8 10 ^3/uL (0.4-5.4); Lymphocytes % (auto) 33.9 % (10.0-50.0); Mean Corpuscular Hemoglobin 31.4 pg (28.0-32.0); Mean Corpuscular Hgb Conc. 34.4 g/dL (32.0-36.0); Mean Corpuscular Volume 91.2 fL (80.0-100.0); Monocytes # (auto) 0.5 10 ^3/uL (0-1.3); Monocytes % (auto) 8.7 % (0.0-12.0); Neutrophils % (auto) 55.8 % (37.0-80.0); Nucleated Red Blood Cells % 0.2 %; Platelet Count (auto) 260 10^3/uL (140-450); Red Blood Cells 4.65 10^6/uL (4.5-5.90); Red Cell Distribution Width 14.7 % (11.8-14.3); White Blood Cell 5.3 10^3/uL (4.4-10.8)
[2020-06-24 19:59] LABS: Alanine Aminotransferase 165 U/L (16-61); Albumin 3.8 g/dL (3.4-5.0); Anion Gap 12 (5-15); Aspartate Aminotransferase 143 U/L (15-37); BUN/Creatinine Ratio 10.9; Blood Urea Nitrogen 10 mg/dL (7-18); Calcium 8.2 mg/dL (8.5-10.1); Carbon Dioxide 23 mmol/L (21-32); Chloride 101 mmol/L (98-107); GFR African American 109 mL/min; GFR Non-African American 90 mL/min; Glucose 74 mg/dL (74-106); Magnesium 2.1 mg/dL (1.6-2.6); Sodium 136 mmol/L (136-145)
[2020-06-24 20:03] LABS: Alkaline Phosphatase 85 U/L (45-117); Bilirubin, Total 0.8 mg/dL (0.2-1.0); Total Protein 7.5 g/dL (6.4-8.2)
[2020-06-24] MEDS ORDERED: LORazepam 2MG/ML-1ML VIAL IV ONE (23:00)
[2020-06-25] MEDS ORDERED: chlordiazePOXIDE HCL 25 MG CAP PO ONE (01:00)
[2020-06-25 01:57] VITALS: BP 146/82
== END 2020-06-25 02:00 | disposition home or self-care (01) ==
LOC: EDBD 16:59 → EDUNIT# 16:59 → ER 16:59
DX: F10.229 Alcohol dependence with intoxication, unspecified (principal); F10.239 Alcohol dependence with withdrawal, unspecified; Y90.7 Blood alcohol level of 200-239 mg/100 ml; I10 Essential (primary) hypertension; F41.9 Anxiety disorder, unspecified; F32.9 Major depressive disorder, single episode, unspecified
CPT/HCPCS: 36415; 80053; 80320; 83735; 84484; 85025; 93005; 96365; 96366; 96372; 96375; 99285; J2060; J3411; J3475; J7030

== ENCOUNTER 2020-06-28 02:54 | Inpatient (IN) | payer MEDICAID ==
[~2020-06-28] VITALS: Ht 175.3 cm; Wt 88.2 kg
[2020-06-28] MEDS ORDERED: LORazepam 2MG/ML-1ML VIAL IV ONE (05:00)
[2020-06-28] MEDS ORDERED: THIAMINE INJ 100 MG in SODIUM CHLORIDE 0.9% 1,000 ML IV ONE (05:00)
[2020-06-28 05:09] LABS: Basophils # (auto) 0.1 10 ^3/uL (0-0.2); Basophils % (auto) 0.7 % (0.0-2.0); Eosinophils # (auto) 0.1 10 ^3/uL (0-0.8); Eosinophils % (auto) 1.4 % (0.0-7.0); Hematocrit 42.5 % (41.0-53.0); Hemoglobin 14.2 g/dL (13.5-17.5); Lymphocytes # (auto) 1.1 10 ^3/uL (0.4-5.4); Lymphocytes % (auto) 13.6 % (10.0-50.0); Mean Corpuscular Hemoglobin 31.2 pg (28.0-32.0); Mean Corpuscular Hgb Conc. 33.6 g/dL (32.0-36.0); Mean Corpuscular Volume 92.9 fL (80.0-100.0); Monocytes # (auto) 0.3 10 ^3/uL (0-1.3); Neutrophils # (auto) 6.2 10 ^3/uL (1.6-8.6); Neutrophils % (auto) 80.3 % (37.0-80.0); Platelet Count (auto) 189 10^3/uL (140-450); Red Blood Cells 4.57 10^6/uL (4.5-5.90); Red Cell Distribution Width 14.6 % (11.8-14.3); White Blood Cell 7.7 10^3/uL (4.4-10.8)
[2020-06-28 05:27] LABS: Albumin 3.6 g/dL (3.4-5.0); Anion Gap 8 (5-15); Blood Alcohol < 3.0 mg/dL (0-5); Blood Urea Nitrogen 10 mg/dL (7-18); Calcium 8.6 mg/dL (8.5-10.1); Carbon Dioxide 23 mmol/L (21-32); Chloride 107 mmol/L (98-107); Glucose 90 mg/dL (74-106); Magnesium 2.3 mg/dL (1.6-2.6); Potassium 3.7 mmol/L (3.5-5.1); Sodium 138 mmol/L (136-145)
[2020-06-28 05:34] LABS: Alanine Aminotransferase 110 U/L (16-61); Alkaline Phosphatase 68 U/L (45-117); Aspartate Aminotransferase 81 U/L (15-37); Bilirubin, Total 0.9 mg/dL (0.2-1.0); GFR African American 123 mL/min; GFR Non-African American 101 mL/min; Total Protein 7.1 g/dL (6.4-8.2)
[2020-06-28 05:36] LABS: INR 1.01 (0.9-1.15); Partial Thromboplastin Time 26.7 sec (23.0-31.2)
[2020-06-28] MEDS ORDERED: THIAMINE 100mg/ml INJ (200mg/2ml VIAL) ONE (05:43)
[2020-06-28 06:06] LABS: Amphetamine Screen, Urine NEGATIVE (NEGATIVE); Barbiturate Scree,Urine NEGATIVE (NEGATIVE); Benzodiazephine Screen, Urine POSITIVE (NEGATIVE); Cannabinoid Screen, Urine POSITIVE (NEGATIVE); Cocaine Screen, Urine NEGATIVE (NEGATIVE); Phencyclidine Screen, Urine NEGATIVE (NEGATIVE)
[2020-06-28 06:14] LABS: Opiate Scree,Urine NEGATIVE (NEGATIVE)
[2020-06-28] MEDS ORDERED: IOHEXOL 350 MG/ML 100ML IJ ONE (06:18)
[2020-06-28] MEDS ORDERED: ENOXAPARIN SOD 100 MG/1 ML SYRINGE SC ONE (07:00)
[2020-06-28] MEDS ORDERED: HYDROcodone-ACET 5/325MG TAB PO PRN (08:00)
[2020-06-28] MEDS ORDERED: MORPHINE SULF INJ 2 MG/ML SYRINGE 1ML IV PRN (08:00)
[2020-06-28] MEDS ORDERED: ONDANSETRON HCL 4 MG/2 ML VIAL IV PRN (08:00)
[2020-06-28] MEDS ORDERED: NITROGLYCERIN 0.4 MG SL TAB SL PRN (08:00)
[2020-06-28] MEDS ORDERED: DOCUSATE SOD 100 MG CAP PO PRN (08:00)
[2020-06-28] MEDS ORDERED: MORPHINE SULFATE 4 MG/ML SYR/VIAL IV PRN (08:00)
[2020-06-28] MEDS ORDERED: ACETAMINOPHEN 325 MG TAB PO PRN (08:00)
[2020-06-28] MEDS ORDERED: hydrALAZINE HCL 20 MG/ML VL IV PRN (08:45)
[2020-06-28 10:49] VITALS: BP 143/95
[2020-06-28 11:19] LABS: Basophils # (auto) 0 10 ^3/uL (0-0.2); Basophils % (auto) 0.6 % (0.0-2.0); Eosinophils # (auto) 0.1 10 ^3/uL (0-0.8); Eosinophils % (auto) 1.3 % (0.0-7.0); Lymphocytes # (auto) 0.9 10 ^3/uL (0.4-5.4); Mean Corpuscular Hemoglobin 31.5 pg (28.0-32.0); Mean Corpuscular Hgb Conc. 34.3 g/dL (32.0-36.0); Mean Corpuscular Volume 91.9 fL (80.0-100.0); Monocytes # (auto) 0.2 10 ^3/uL (0-1.3); Monocytes % (auto) 3.7 % (0.0-12.0); Neutrophils # (auto) 5.3 10 ^3/uL (1.6-8.6); Neutrophils % (auto) 80.4 % (37.0-80.0); Nucleated Red Blood Cells % 0.2 %; Platelet Count (auto) 192 10^3/uL (140-450); Red Blood Cells 4.45 10^6/uL (4.5-5.90); Red Cell Distribution Width 14.8 % (11.8-14.3); White Blood Cell 6.6 10^3/uL (4.4-10.8)
[2020-06-28 11:42] LABS: Albumin 3.5 g/dL (3.4-5.0); Calcium 8.5 mg/dL (8.5-10.1); Potassium 3.8 mmol/L (3.5-5.1)
[2020-06-28 11:45] LABS: BUN/Creatinine Ratio 9.3; Total Protein 7.1 g/dL (6.4-8.2)
[2020-06-28] MEDS: FAMOTIDINE (10MG/ML) 2ML VL IV SCH ×2 (11:49→22:00)
[2020-06-28] MEDS: MULTIPLE VITAMIN TAB PO SCH (11:49)
[2020-06-28] MEDS: FOLIC ACID 1 MG TAB PO SCH (11:49)
[2020-06-28] MEDS: ZINC SULFATE 220mg CAP or TAB PO SCH (11:49)
[2020-06-28] MEDS: THIAMINE HCL 100 MG TAB PO SCH (11:49)
[2020-06-28] MEDS: ASCORBIC ACID 500 MG TAB PO SCH ×2 (11:50→22:00)
[2020-06-28] MEDS: amLODIPine BESYLATE 5 MG TAB PO SCH (11:50)
[2020-06-28 13:00] VITALS: BP 118/74
[2020-06-28] MEDS ORDERED: LACTULOSE 20Gm/30ML SOLN PO ONE (14:15)
[2020-06-28 17:21] VITALS: BP 144/92
[2020-06-28] MEDS: chlordiazePOXIDE HCL 25 MG CAP PO SCH ×2 (17:37→23:47)
[2020-06-28] MEDS: ENOXAPARIN SOD 80 MG/0.8ML SYRINGE SC SCH (22:00)
[2020-06-29 05:00] VITALS: BP 123/82
[2020-06-29] MEDS: chlordiazePOXIDE HCL 25 MG CAP PO SCH (05:37)
[2020-06-29 07:18] LABS: Albumin 3.2 g/dL (3.4-5.0); Calcium 8.4 mg/dL (8.5-10.1); Potassium 3.7 mmol/L (3.5-5.1)
[2020-06-29 07:19] LABS: Basophils # (auto) 0 10 ^3/uL (0-0.2); Basophils % (auto) 0.5 % (0.0-2.0); Eosinophils # (auto) 0.1 10 ^3/uL (0-0.8); Eosinophils % (auto) 1.4 % (0.0-7.0); Hematocrit 39.9 % (41.0-53.0); Hemoglobin 13.9 g/dL (13.5-17.5); Lymphocytes # (auto) 1.4 10 ^3/uL (0.4-5.4); Lymphocytes % (auto) 22.7 % (10.0-50.0); Mean Corpuscular Hemoglobin 31.8 pg (28.0-32.0); Mean Corpuscular Hgb Conc. 34.7 g/dL (32.0-36.0); Mean Corpuscular Volume 91.4 fL (80.0-100.0); Monocytes # (auto) 0.4 10 ^3/uL (0-1.3); Monocytes % (auto) 5.9 % (0.0-12.0); Neutrophils # (auto) 4.4 10 ^3/uL (1.6-8.6); Neutrophils % (auto) 69.5 % (37.0-80.0); Platelet Count (auto) 172 10^3/uL (140-450); Red Blood Cells 4.36 10^6/uL (4.5-5.90); White Blood Cell 6.3 10^3/uL (4.4-10.8)
[2020-06-29 07:20] LABS: BUN/Creatinine Ratio 8.8
[2020-06-29 07:23] LABS: Bilirubin, Total 0.7 mg/dL (0.2-1.0); Total Protein 6.8 g/dL (6.4-8.2)
[2020-06-29 08:59] VITALS: BP 118/72
[2020-06-29] MEDS ORDERED: LACTULOSE 20Gm/30ML SOLN PO SCH (10:00)
[2020-06-29] MEDS: ZINC SULFATE 220mg CAP or TAB PO SCH (11:10)
[2020-06-29] MEDS: FOLIC ACID 1 MG TAB PO SCH (11:10)
[2020-06-29] MEDS: ENOXAPARIN SOD 80 MG/0.8ML SYRINGE SC SCH (11:11)
[2020-06-29] MEDS: THIAMINE HCL 100 MG TAB PO SCH (11:11)
[2020-06-29] MEDS: ASCORBIC ACID 500 MG TAB PO SCH (11:11)
[2020-06-29] MEDS: MULTIPLE VITAMIN TAB PO SCH (11:11)
[2020-06-29] MEDS: FAMOTIDINE (10MG/ML) 2ML VL IV SCH (11:11)
[2020-06-29] MEDS: amLODIPine BESYLATE 5 MG TAB PO SCH (11:18)
[2020-06-29 13:00] VITALS: BP 123/71
[2020-06-29 13:40] VITALS: BP 123/71
[2020-07-08] MEDS ORDERED: MULTTAB99 PO (12:00)
[2020-07-08] MEDS ORDERED: LEVO750T8 PO (12:00)
== END 2020-06-29 14:50 | disposition home or self-care (01) | DRG 134 ==
LOC: EDBD 02:54 → ER 03:00 → TELE 07:57 → TELE-WESTW 10:17
PROVIDERS: ADMIT Nurse Practitioner Family; ATTEND Internal Medicine
DX: I26.99 Other pulmonary embolism without acute cor pulmonale (principal); N17.0 Acute kidney failure with tubular necrosis; J96.02 Acute respiratory failure with hypercapnia; K70.30 Alcoholic cirrhosis of liver without ascites; K72.90 Hepatic failure, unspecified without coma; R65.10 Systemic inflammatory response syndrome (SIRS) of non-infectious origin without acute organ dysfunction; F32.9 Major depressive disorder, single episode, unspecified; H53.8 Other visual disturbances; I12.9 Hypertensive chronic kidney disease with stage 1 through stage 4 chronic kidney disease, or unspecified chronic kidney disease; F10.139 Alcohol abuse with withdrawal, unspecified; F21 Schizotypal disorder; F41.9 Anxiety disorder, unspecified; N18.9 Chronic kidney disease, unspecified; Z82.0 Family history of epilepsy and other diseases of the nervous system; Z82.49 Family history of ischemic heart disease and other diseases of the circulatory system; Z20.822 Contact with and (suspected) exposure to COVID-19
CPT/HCPCS: 36415; 71275; 80053; 80307; 80320; 82140; 83735; 83880; 84443; 84484; 85025; 85379; 85610; 85730; 87426; 93005; 93970; 96365; 96366; 96372; 96375; G0378; J3490

== ENCOUNTER 2020-07-03 00:59 | Inpatient (IN) | payer MEDICAID ==
[~2020-07-03] VITALS: Ht 175.3 cm; Wt 87.0 kg
[2020-07-03 02:39] LABS: Basophils # (auto) 0.1 10 ^3/uL (0-0.2); Basophils % (auto) 0.6 % (0.0-2.0); Eosinophils # (auto) 0 10 ^3/uL (0-0.8); Eosinophils % (auto) 0.2 % (0.0-7.0); Hematocrit 40.4 % (41.0-53.0); Hemoglobin 13.9 g/dL (13.5-17.5); Lymphocytes # (auto) 1.3 10 ^3/uL (0.4-5.4); Lymphocytes % (auto) 13.8 % (10.0-50.0); Mean Corpuscular Hemoglobin 31.3 pg (28.0-32.0); Mean Corpuscular Hgb Conc. 34.3 g/dL (32.0-36.0); Mean Corpuscular Volume 91.1 fL (80.0-100.0); Monocytes # (auto) 1.5 10 ^3/uL (0-1.3); Monocytes % (auto) 15.4 % (0.0-12.0); Neutrophils # (auto) 6.6 10 ^3/uL (1.6-8.6); Nucleated Red Blood Cells % 0.5 %; Platelet Count (auto) 235 10^3/uL (140-450); Red Blood Cells 4.44 10^6/uL (4.5-5.90); Red Cell Distribution Width 15.2 % (11.8-14.3); White Blood Cell 9.5 10^3/uL (4.4-10.8)
[2020-07-03 02:56] LABS: INR 1.18 (0.9-1.15)
[2020-07-03 02:59] LABS: Alanine Aminotransferase 61 U/L (16-61); Albumin 3.5 g/dL (3.4-5.0); Anion Gap 11 (5-15); Aspartate Aminotransferase 21 U/L (15-37); BUN/Creatinine Ratio 12.5; Blood Urea Nitrogen 11 mg/dL (7-18); Calcium 8.8 mg/dL (8.5-10.1); Carbon Dioxide 24 mmol/L (21-32); Chloride 96 mmol/L (98-107); GFR African American 115 mL/min; GFR Non-African American 95 mL/min; Glucose 108 mg/dL (74-106); Potassium 3.7 mmol/L (3.5-5.1); Sodium 131 mmol/L (136-145)
[2020-07-03 03:04] LABS: Alkaline Phosphatase 62 U/L (45-117); Bilirubin, Total 1.1 mg/dL (0.2-1.0); Total Protein 7.7 g/dL (6.4-8.2)
[2020-07-03] MEDS ORDERED: ACETAMINOPHEN 500 MG TAB PO ONE (05:15)
[2020-07-03] MEDS ORDERED: cefTRIAXone 1GM/50ML D5W 50 ML IV ONE (09:45)
[2020-07-03] MEDS ORDERED: ONDANSETRON HCL 4 MG/2 ML VIAL IV PRN (10:30)
[2020-07-03] MEDS ORDERED: MORPHINE SULF INJ 2 MG/ML SYRINGE 1ML IV PRN ×2 (10:30)
[2020-07-03] MEDS ORDERED: NITROGLYCERIN 0.4 MG SL TAB SL PRN (10:30)
[2020-07-03] MEDS ORDERED: THIAMINE HCL 100 MG TAB PO ONE (10:45)
[2020-07-03] MEDS ORDERED: KETOROLAC TROMETH 30 MG/ML 1ML VIAL IV ONE (10:45)
[2020-07-03] MEDS ORDERED: MULTIPLE VITAMIN TAB PO ONE ×2 (10:45→11:00)
[2020-07-03] MEDS ORDERED: levoFLOXacin 500MG 100 ML IV ONE (11:00)
[2020-07-03] MEDS ORDERED: FAMOTIDINE 20 MG TAB PO ONE (11:00)
[2020-07-03] MEDS ORDERED: APIXABAN 5 MG TAB PO ONE (11:00)
[2020-07-03 12:43] VITALS: BP 112/70
[2020-07-03 12:45] VITALS: BP 112/70
[2020-07-03] MEDS: CLINDAMYCIN 300MG IV 50 ML IV SCH ×2 (13:56→21:38)
[2020-07-03 17:00] VITALS: BP 107/68
[2020-07-03] MEDS: ACETAMINOPHEN 500 MG TAB PO PRN (19:49)
[2020-07-03] MEDS: APIXABAN 5 MG TAB PO SCH (21:38)
[2020-07-03] MEDS: chlordiazePOXIDE HCL 25 MG CAP PO PRN (21:39)
[2020-07-03 22:00] VITALS: BP 114/67
[2020-07-04 02:45] VITALS: BP 114/67
[2020-07-04 05:00] VITALS: BP 115/63
[2020-07-04] MEDS: HYDROcodone-ACET 5/325MG TAB PO PRN (05:15)
[2020-07-04] MEDS: CLINDAMYCIN 300MG IV 50 ML IV SCH (05:40)
[2020-07-04 06:10] LABS: Basophils # (auto) 0.1 10 ^3/uL (0-0.2); Basophils % (auto) 0.6 % (0.0-2.0); Eosinophils # (auto) 0.1 10 ^3/uL (0-0.8); Eosinophils % (auto) 0.5 % (0.0-7.0); Hematocrit 36.7 % (41.0-53.0); Hemoglobin 12.8 g/dL (13.5-17.5); Lymphocytes # (auto) 1.7 10 ^3/uL (0.4-5.4); Lymphocytes % (auto) 14.9 % (10.0-50.0); Mean Corpuscular Hemoglobin 31.7 pg (28.0-32.0); Mean Corpuscular Hgb Conc. 34.8 g/dL (32.0-36.0); Mean Corpuscular Volume 91.2 fL (80.0-100.0); Monocytes # (auto) 1.7 10 ^3/uL (0-1.3); Monocytes % (auto) 15.1 % (0.0-12.0); Neutrophils # (auto) 7.7 10 ^3/uL (1.6-8.6); Neutrophils % (auto) 68.9 % (37.0-80.0); Nucleated Red Blood Cells % 0.1 %; Platelet Count (auto) 224 10^3/uL (140-450); Red Blood Cells 4.03 10^6/uL (4.5-5.90); Red Cell Distribution Width 15.1 % (11.8-14.3); White Blood Cell 11.2 10^3/uL (4.4-10.8)
[2020-07-04 06:24] LABS: Calcium 8.9 mg/dL (8.5-10.1)
[2020-07-04] MEDS: IPRATROPIUM BROM 0.5 MG/2.5ML INH SOL NEB SCH ×5 (06:40→22:48)
[2020-07-04 08:23] VITALS: BP 109/62
[2020-07-04] MEDS: THIAMINE HCL 100 MG TAB PO SCH (09:45)
[2020-07-04] MEDS: FLORASTOR (S. BOULARDII) 250 MG CAP PO SCH (09:45)
[2020-07-04] MEDS: FAMOTIDINE 20 MG TAB PO SCH (09:46)
[2020-07-04] MEDS: MULTIPLE VITAMIN TAB PO SCH (09:46)
[2020-07-04] MEDS: APIXABAN 5 MG TAB PO SCH (09:46)
[2020-07-04] MEDS ORDERED: levoFLOXacin 500MG 100 ML IV SCH (10:00)
[2020-07-04] MEDS: chlordiazePOXIDE HCL 25 MG CAP PO PRN ×2 (11:24→18:11)
[2020-07-04] MEDS ORDERED: IOHEXOL 350 MG/ML 100ML IJ ONE (12:23)
[2020-07-04 13:00] VITALS: BP 124/65
[2020-07-04] MEDS: ALBUTEROL SULF 2.5 MG/0.5ML(0.5%) NEB SOLN NEB SCH ×3 (14:00→22:49)
[2020-07-04] MEDS: HEPARIN DRIP/D5W 100UNITS/ML 250 ML IV SCH (14:35)
[2020-07-04 15:56] LABS: INR 1.34 (0.9-1.15); Partial Thromboplastin Time 47.7 sec (23.0-31.2)
[2020-07-04 17:04] VITALS: BP 143/76
[2020-07-04] MEDS: ACETAMINOPHEN 500 MG TAB PO PRN (21:34)
[2020-07-04 22:00] VITALS: BP 130/72
[2020-07-04 22:01] LABS: INR 1.25 (0.9-1.15); Partial Thromboplastin Time 43.5 sec (23.0-31.2)
[2020-07-04] MEDS ORDERED: TEMAZEPAM 15 MG CAP PO ONE (23:15)
[2020-07-05] VITALS (16 sets, daily range): BP systolic 96–132; BP diastolic 56–90
[2020-07-05] MEDS: ALBUTEROL SULF 2.5 MG/0.5ML(0.5%) NEB SOLN NEB SCH ×6 (02:00→22:00)
[2020-07-05] MEDS: chlordiazePOXIDE HCL 25 MG CAP PO PRN ×2 (03:42→15:21)
[2020-07-05 04:41] LABS: Basophils # (auto) 0.1 10 ^3/uL (0-0.2); Basophils % (auto) 0.9 % (0.0-2.0); Eosinophils # (auto) 0.1 10 ^3/uL (0-0.8); Eosinophils % (auto) 0.5 % (0.0-7.0); Hematocrit 37.4 % (41.0-53.0); Hemoglobin 12.8 g/dL (13.5-17.5); Lymphocytes # (auto) 1.9 10 ^3/uL (0.4-5.4); Lymphocytes % (auto) 14.9 % (10.0-50.0); Mean Corpuscular Hemoglobin 30.8 pg (28.0-32.0); Mean Corpuscular Hgb Conc. 34.2 g/dL (32.0-36.0); Mean Corpuscular Volume 90.2 fL (80.0-100.0); Monocytes # (auto) 1.4 10 ^3/uL (0-1.3); Monocytes % (auto) 11.2 % (0.0-12.0); Neutrophils % (auto) 72.5 % (37.0-80.0); Nucleated Red Blood Cells % 0.1 %; Platelet Count (auto) 282 10^3/uL (140-450); Red Blood Cells 4.15 10^6/uL (4.5-5.90); Red Cell Distribution Width 14.9 % (11.8-14.3); White Blood Cell 12.4 10^3/uL (4.4-10.8)
[2020-07-05 05:00] LABS: Potassium 3.8 mmol/L (3.5-5.1)
[2020-07-05 05:01] LABS: INR 1.23 (0.9-1.15); Partial Thromboplastin Time 58.7 sec (23.0-31.2)
[2020-07-05 05:06] LABS: BUN/Creatinine Ratio 8.5; Magnesium 2.4 mg/dL (1.6-2.6)
[2020-07-05] MEDS: HEPARIN DRIP/D5W 100UNITS/ML 250 ML IV SCH ×2 (05:31→21:55)
[2020-07-05] MEDS: IPRATROPIUM BROM 0.5 MG/2.5ML INH SOL NEB SCH ×5 (06:21→22:00)
[2020-07-05] MEDS ORDERED: IOHEXOL 350 MG/ML 100ML IJ ONE (09:30)
[2020-07-05] MEDS ORDERED: LIDOCAINE 2%HCL (LOCAL ANESTH.) INJ 20ML MDV ONE (09:30)
[2020-07-05] MEDS ORDERED: HEPARIN IN NS 1000Units/500mL 1,500 ML ONE (09:31)
[2020-07-05] MEDS ORDERED: fentaNYL CITRATE 100 MCG/2 ML VL ONE (09:41)
[2020-07-05] MEDS ORDERED: MIDAZOLAM HCL 1MG/1ML-2 ML VIAL ONE (09:42)
[2020-07-05 09:46] LABS: INR 1.22 (0.9-1.15)
[2020-07-05 09:56] LABS: Partial Thromboplastin Time 106.4 sec (23.0-31.2)
[2020-07-05] MEDS ORDERED: HEPARIN SODIUM (PORCINE) 5000 UNITS/ML 1ML VIAL ONE (10:41)
[2020-07-05] MEDS: FLORASTOR (S. BOULARDII) 250 MG CAP PO SCH (15:20)
[2020-07-05] MEDS: THIAMINE HCL 100 MG TAB PO SCH (15:20)
[2020-07-05] MEDS: MULTIPLE VITAMIN TAB PO SCH (15:20)
[2020-07-05] MEDS: FAMOTIDINE 20 MG TAB PO SCH (15:20)
[2020-07-05 18:50] LABS: INR 1.13 (0.9-1.15); Partial Thromboplastin Time 55.7 sec (23.0-31.2)
[2020-07-05] MEDS: PIPERACILLIN-TAZOB 3.375GM 100 ML IV SCH (19:12)
[2020-07-06] VITALS (10 sets, daily range): BP systolic 92–122; BP diastolic 57–72
[2020-07-06 00:05] LABS: Hematocrit 41.4 % (41.0-53.0)
[2020-07-06 00:29] LABS: INR 1.13 (0.9-1.15); Partial Thromboplastin Time 47.9 sec (23.0-31.2)
[2020-07-06] MEDS: chlordiazePOXIDE HCL 25 MG CAP PO PRN ×2 (00:44→15:55)
[2020-07-06] MEDS: PIPERACILLIN-TAZOB 3.375GM 100 ML IV SCH ×5 (00:44→23:04)
[2020-07-06] MEDS: ALBUTEROL SULF 2.5 MG/0.5ML(0.5%) NEB SOLN NEB SCH ×7 (02:00→22:31)
[2020-07-06 06:18] LABS: Basophils # (auto) 0.1 10 ^3/uL (0-0.2); Basophils % (auto) 0.9 % (0.0-2.0); Eosinophils # (auto) 0.1 10 ^3/uL (0-0.8); Eosinophils % (auto) 1.3 % (0.0-7.0); Hematocrit 34.2 % (41.0-53.0); Hemoglobin 11.9 g/dL (13.5-17.5); Lymphocytes # (auto) 2.1 10 ^3/uL (0.4-5.4); Lymphocytes % (auto) 19.8 % (10.0-50.0); Mean Corpuscular Hemoglobin 31.3 pg (28.0-32.0); Mean Corpuscular Hgb Conc. 34.9 g/dL (32.0-36.0); Monocytes # (auto) 1.1 10 ^3/uL (0-1.3); Neutrophils # (auto) 7.3 10 ^3/uL (1.6-8.6); Platelet Count (auto) 336 10^3/uL (140-450); Red Cell Distribution Width 15.2 % (11.8-14.3); White Blood Cell 10.7 10^3/uL (4.4-10.8)
[2020-07-06 06:48] LABS: Potassium 3.7 mmol/L (3.5-5.1)
[2020-07-06] MEDS: IPRATROPIUM BROM 0.5 MG/2.5ML INH SOL NEB SCH ×6 (06:59→22:31)
[2020-07-06 07:00] LABS: BUN/Creatinine Ratio 10.3; Calcium 8.7 mg/dL (8.5-10.1); Magnesium 2.8 mg/dL (1.6-2.6)
[2020-07-06] MEDS: HYDROcodone-ACET 5/325MG TAB PO PRN ×3 (08:21→23:04)
[2020-07-06] MEDS: FLORASTOR (S. BOULARDII) 250 MG CAP PO SCH (10:23)
[2020-07-06] MEDS: THIAMINE HCL 100 MG TAB PO SCH (10:23)
[2020-07-06] MEDS: MULTIPLE VITAMIN TAB PO SCH (10:24)
[2020-07-06] MEDS: FAMOTIDINE 20 MG TAB PO SCH (10:24)
[2020-07-06 12:00] LABS: INR 1.11 (0.9-1.15); Partial Thromboplastin Time 52.5 sec (23.0-31.2)
[2020-07-06] MEDS ORDERED: HEPARIN DRIP/D5W 100UNITS/ML 250 ML IV SCH ×2 (12:45→14:40)
[2020-07-06 17:09] LABS: INR 1.07 (0.9-1.15); Partial Thromboplastin Time 37.6 sec (23.0-31.2)
[2020-07-06] MEDS ORDERED: APIXABAN 5 MG TAB PO SCH (22:00)
[2020-07-06] MEDS: APIXABAN 5 MG TAB PO SCH (22:11)
[2020-07-07] MEDS: ALBUTEROL SULF 2.5 MG/0.5ML(0.5%) NEB SOLN NEB SCH ×6 (01:55→22:07)
[2020-07-07] MEDS: IPRATROPIUM BROM 0.5 MG/2.5ML INH SOL NEB SCH ×6 (01:55→22:07)
[2020-07-07] MEDS: chlordiazePOXIDE HCL 25 MG CAP PO PRN ×3 (02:53→23:45)
[2020-07-07 05:00] VITALS: BP 93/61
[2020-07-07] MEDS: PIPERACILLIN-TAZOB 3.375GM 100 ML IV SCH ×4 (06:05→23:44)
[2020-07-07 08:00] VITALS: BP 102/63
[2020-07-07] MEDS: FLORASTOR (S. BOULARDII) 250 MG CAP PO SCH (09:14)
[2020-07-07] MEDS: FAMOTIDINE 20 MG TAB PO SCH (09:14)
[2020-07-07] MEDS: THIAMINE HCL 100 MG TAB PO SCH (09:14)
[2020-07-07] MEDS: MULTIPLE VITAMIN TAB PO SCH (09:14)
[2020-07-07] MEDS: APIXABAN 5 MG TAB PO SCH ×2 (09:14→21:49)
[2020-07-07] MEDS: HYDROcodone-ACET 5/325MG TAB PO PRN ×2 (09:33→21:49)
[2020-07-07 09:42] LABS: Basophils # (auto) 0.1 10 ^3/uL (0-0.2); Basophils % (auto) 1.6 % (0.0-2.0); Eosinophils # (auto) 0.2 10 ^3/uL (0-0.8); Eosinophils % (auto) 2.8 % (0.0-7.0); Hematocrit 32.7 % (41.0-53.0); Hemoglobin 11.1 g/dL (13.5-17.5); Lymphocytes # (auto) 1.2 10 ^3/uL (0.4-5.4); Lymphocytes % (auto) 14.8 % (10.0-50.0); Mean Corpuscular Hemoglobin 30.5 pg (28.0-32.0); Mean Corpuscular Hgb Conc. 33.9 g/dL (32.0-36.0); Monocytes # (auto) 0.5 10 ^3/uL (0-1.3); Monocytes % (auto) 5.7 % (0.0-12.0); Neutrophils # (auto) 5.9 10 ^3/uL (1.6-8.6); Neutrophils % (auto) 75.1 % (37.0-80.0); Platelet Count (auto) 375 10^3/uL (140-450); Red Blood Cells 3.64 10^6/uL (4.5-5.90); Red Cell Distribution Width 15.6 % (11.8-14.3); White Blood Cell 7.9 10^3/uL (4.4-10.8)
[2020-07-07 09:54] LABS: Potassium 3.5 mmol/L (3.5-5.1)
[2020-07-07 09:57] LABS: BUN/Creatinine Ratio 9.4
[2020-07-07 13:00] VITALS: BP 95/67
[2020-07-07 17:00] VITALS: BP 98/70
[2020-07-07 22:00] VITALS: BP 98/66
[2020-07-08] MEDS: ALBUTEROL SULF 2.5 MG/0.5ML(0.5%) NEB SOLN NEB SCH ×4 (02:00→13:03)
[2020-07-08 04:56] VITALS: BP 110/67
[2020-07-08] MEDS: PIPERACILLIN-TAZOB 3.375GM 100 ML IV SCH ×3 (05:49→18:00)
[2020-07-08] MEDS: HYDROcodone-ACET 5/325MG TAB PO PRN ×2 (05:50→12:25)
[2020-07-08] MEDS: IPRATROPIUM BROM 0.5 MG/2.5ML INH SOL NEB SCH ×3 (06:14→13:03)
[2020-07-08 07:05] LABS: Hematocrit 36.1 % (41.0-53.0); Hemoglobin 12.1 g/dL (13.5-17.5)
[2020-07-08] MEDS: chlordiazePOXIDE HCL 25 MG CAP PO PRN (08:50)
[2020-07-08 09:09] VITALS: BP 98/61
[2020-07-08] MEDS: MULTIPLE VITAMIN TAB PO SCH (09:09)
[2020-07-08] MEDS: APIXABAN 5 MG TAB PO SCH (09:09)
[2020-07-08] MEDS: FLORASTOR (S. BOULARDII) 250 MG CAP PO SCH (09:09)
[2020-07-08] MEDS: FAMOTIDINE 20 MG TAB PO SCH (09:09)
[2020-07-08] MEDS: THIAMINE HCL 100 MG TAB PO SCH (09:10)
[2020-07-08] MEDS ORDERED: LEVO750T8 PO (12:00)
[2020-07-08] MEDS ORDERED: MULTTAB99 PO (12:00)
[2020-07-08 12:58] VITALS: BP 103/75
[2020-07-13] MEDS ORDERED: APIXABAN 5 MG TAB PO SCH (22:00)
== END 2020-07-08 18:23 | disposition home health service (06) | DRG 134 ==
LOC: EDBD 00:59 → ER 01:04 → OVERFLOW 10:30 → WEST WING 11:48 → TELE-WESTW 07-04 13:06 → WEST WING 07-04 13:08 → TELE-WESTW 07-05 17:35
PROVIDERS: ADMIT Nurse Practitioner Acute Care; ATTEND Internal Medicine
PROC: 02CR3ZZ Extirpation of Matter from Left Pulmonary Artery, Percutaneous Approach (ICD-10-PCS; principal; 2020-07-05)
PROC: B31S1ZZ Fluoroscopy of Right Pulmonary Artery using Low Osmolar Contrast (ICD-10-PCS; 2020-07-05)
DX: I26.94 Multiple subsegmental thrombotic pulmonary emboli without acute cor pulmonale (principal); J96.01 Acute respiratory failure with hypoxia; J90 Pleural effusion, not elsewhere classified; J18.9 Pneumonia, unspecified organism; I10 Essential (primary) hypertension; R65.10 Systemic inflammatory response syndrome (SIRS) of non-infectious origin without acute organ dysfunction; F32.9 Major depressive disorder, single episode, unspecified; F41.9 Anxiety disorder, unspecified; K21.9 Gastro-esophageal reflux disease without esophagitis; R07.81 Pleurodynia; D72.829 Elevated white blood cell count, unspecified; F10.10 Alcohol abuse, uncomplicated; Z20.822 Contact with and (suspected) exposure to COVID-19; Z79.01 Long term (current) use of anticoagulants; Z82.0 Family history of epilepsy and other diseases of the nervous system; Z82.49 Family history of ischemic heart disease and other diseases of the circulatory system; Z86.711 Personal history of pulmonary embolism; Z71.41 Alcohol abuse counseling and surveillance of alcoholic
CPT/HCPCS: 36415; 36600; 71045; 71046; 71275; 76000; 76942; 80048; 80053; 82805; 83735; 83880; 84484; 85014; 85018; 85025; 85610; 85730; 87040; 87081; 87426; 93005; 93306; 94640; 96365; 96367; G0378; J0696; J1885; J1956; J2250; J2543; J3490

== ENCOUNTER 2020-12-30 08:27 | Emergency (ER) | payer MEDICAID ==
[~2020-12-30] VITALS: Ht 182.9 cm; Wt 86.2 kg
[~2020-12-30 08:27] MED LIST changes: +LEVO750T8 PO; -METO25TA5 PO; +MULTTAB99 PO
[2020-12-30] MEDS ORDERED: THIAMINE 100mg/ml INJ (200mg/2ml VIAL) IV ONE (09:00)
[2020-12-30] MEDS ORDERED: SODIUM CHLORIDE 0.9% 1,000 ML IV ONE ×2 (09:00)
[2020-12-30] MEDS ORDERED: chlordiazePOXIDE HCL 25 MG CAP PO ONE (09:00)
[2020-12-30] MEDS ORDERED: ONDANSETRON HCL 4 MG/2 ML VIAL ONE (09:56)
[2020-12-30 09:58] VITALS: BP 166/89
[2020-12-30] MEDS ORDERED: ONDANSETRON HCL 4 MG/2 ML VIAL IV ONE (10:00)
[2020-12-30 10:46] LABS: Albumin 3.8 g/dL (3.4-5.0); Anion Gap 17 (5-15); Basophils # (auto) 0.1 10 ^3/uL (0-0.2); Basophils % (auto) 0.8 % (0.0-2.0); Blood Urea Nitrogen 21 mg/dL (7-18); Calcium 8.1 mg/dL (8.5-10.1); Carbon Dioxide 18 mmol/L (21-32); Chloride 98 mmol/L (98-107); Eosinophils # (auto) 0 10 ^3/uL (0-0.8); Eosinophils % (auto) 0.2 % (0.0-7.0); Glucose 71 mg/dL (74-106); Hematocrit 44.1 % (41.0-53.0); Hemoglobin 14.8 g/dL (13.5-17.5); Lymphocytes # (auto) 1.7 10 ^3/uL (0.4-5.4); Lymphocytes % (auto) 14.1 % (10.0-50.0); Mean Corpuscular Hemoglobin 29.5 pg (28.0-32.0); Mean Corpuscular Hgb Conc. 33.6 g/dL (32.0-36.0); Mean Corpuscular Volume 87.8 fL (80.0-100.0); Monocytes # (auto) 0.5 10 ^3/uL (0-1.3); Monocytes % (auto) 4.4 % (0.0-12.0); Neutrophils # (auto) 9.6 10 ^3/uL (1.6-8.6); Neutrophils % (auto) 80.5 % (37.0-80.0); Red Blood Cells 5.03 10^6/uL (4.5-5.90); Sodium 133 mmol/L (136-145); White Blood Cell 11.9 10^3/uL (4.4-10.8)
[2020-12-30 10:52] LABS: Alanine Aminotransferase 58 U/L (16-61); Alkaline Phosphatase 74 U/L (45-117); Aspartate Aminotransferase 43 U/L (15-37); GFR African American 99 mL/min; GFR Non-African American 82 mL/min; Total Protein 7.8 g/dL (6.4-8.2)
[2020-12-30 12:12] LABS: Urine Bacteria NONE SEEN /hpf (None Seen); Urine Blood Negative /uL (Negative); Urine Mucus FEW (None Seen); Urine Specific Gravity 1.023 (1.001-1.035); Urine WBC <1 /hpf (0 - 3)
== END 2020-12-30 15:01 | disposition home or self-care (01) ==
LOC: EDBD 08:27 → ER 08:27 → EDUNIT# 08:27 → ER 15:01
DX: R07.89 Other chest pain (principal); F10.239 Alcohol dependence with withdrawal, unspecified; R11.0 Nausea; I10 Essential (primary) hypertension; K21.9 Gastro-esophageal reflux disease without esophagitis; Z79.2 Long term (current) use of antibiotics; Z79.899 Other long term (current) drug therapy; Y90.6 Blood alcohol level of 120-199 mg/100 ml
CPT/HCPCS: 36415; 71045; 80053; 80320; 81001; 84484; 85025; 93005; 96361; 96374; 96375; 99285; J2405; J3411; J7030

== ENCOUNTER 2021-02-26 16:30 | Emergency (ER) | payer MEDICAID ==
[~2021-02-26] VITALS: Ht 175.3 cm; Wt 86.2 kg
[2021-02-26] MEDS: SODIUM CHLORIDE 0.9% 1,000 ML IVB ONE (17:21)
[2021-02-26] MEDS: ONDANSETRON HCL 4 MG/2 ML VIAL IV ONE (17:40)
[2021-02-26] MEDS: LORazepam 2MG/ML-1ML VIAL IV ONE (17:40)
[2021-02-26 17:58] LABS: Basophils # (auto) 0.1 10 ^3/uL (0-0.2); Basophils % (auto) 0.8 % (0.0-2.0); Eosinophils # (auto) 0 10 ^3/uL (0-0.8); Eosinophils % (auto) 0.2 % (0.0-7.0); Hematocrit 41.5 % (41.0-53.0); Hemoglobin 14.7 g/dL (13.5-17.5); Lymphocytes # (auto) 1.1 10 ^3/uL (0.4-5.4); Lymphocytes % (auto) 13.3 % (10.0-50.0); Mean Corpuscular Hemoglobin 31.6 pg (28.0-32.0); Mean Corpuscular Hgb Conc. 35.3 g/dL (32.0-36.0); Mean Corpuscular Volume 89.4 fL (80.0-100.0); Monocytes # (auto) 0.5 10 ^3/uL (0-1.3); Monocytes % (auto) 6.5 % (0.0-12.0); Neutrophils # (auto) 6.5 10 ^3/uL (1.6-8.6); Neutrophils % (auto) 79.2 % (37.0-80.0); Nucleated Red Blood Cells % 0.1 %; Red Blood Cells 4.64 10^6/uL (4.5-5.90); Red Cell Distribution Width 16.8 % (11.8-14.3); White Blood Cell 8.3 10^3/uL (4.4-10.8)
[2021-02-26 19:24] LABS: Alanine Aminotransferase 135 U/L (16-61); Aspartate Aminotransferase 135 U/L (15-37)
[2021-02-26 19:36] LABS: Anion Gap 16 (5-15); BUN/Creatinine Ratio 15.9; Blood Urea Nitrogen 13 mg/dL (7-18); Carbon Dioxide 20 mmol/L (21-32); Chloride 97 mmol/L (98-107); GFR African American 124 mL/min; GFR Non-African American 103 mL/min; Glucose 82 mg/dL (74-106); Potassium 3.9 mmol/L (3.5-5.1); Sodium 133 mmol/L (136-145)
[2021-02-26 19:37] LABS: Albumin 3.8 g/dL (3.4-5.0); Alkaline Phosphatase 59 U/L (45-117); Bilirubin, Total 1.1 mg/dL (0.2-1.0); Calcium 7.9 mg/dL (8.5-10.1); Lipase 130 U/L (73-393); Total Protein 7.5 g/dL (6.4-8.2)
[2021-02-26 20:33] LABS: Amphetamine Screen, Urine NEGATIVE (NEGATIVE); Barbiturate Scree,Urine NEGATIVE (NEGATIVE); Benzodiazephine Screen, Urine NEGATIVE (NEGATIVE); Cannabinoid Screen, Urine NEGATIVE (NEGATIVE); Cocaine Screen, Urine NEGATIVE (NEGATIVE); Opiate Scree,Urine NEGATIVE (NEGATIVE); Phencyclidine Screen, Urine NEGATIVE (NEGATIVE)
[2021-02-26] MEDS: ONDANSETRON ODT 4 MG TAB PO ONE (21:58)
[2021-02-26] MEDS: diazePAM 5 MG TAB PO ONE (21:59)
[2021-02-27] MEDS: ACETAMINOPHEN 325 MG TAB PO ONE (08:30)
[2021-02-27] MEDS: LORazepam 0.5 MG TAB PO ONE (08:30)
[2021-02-27 12:00] VITALS: BP 147/68
== END 2021-02-27 10:47 | disposition home or self-care (01) ==
LOC: ER 16:30 → EDBD 16:30 → ER 02-27 10:47
DX: R45.851 Suicidal ideations (principal); R07.89 Other chest pain; F41.9 Anxiety disorder, unspecified; F10.129 Alcohol abuse with intoxication, unspecified; F17.210 Nicotine dependence, cigarettes, uncomplicated; K21.9 Gastro-esophageal reflux disease without esophagitis; I10 Essential (primary) hypertension; Z20.822 Contact with and (suspected) exposure to COVID-19; Y90.8 Blood alcohol level of 240 mg/100 ml or more
CPT/HCPCS: 36415; 71045; 80053; 80307; 80320; 83690; 84484; 85025; 87426; 93005; 96361; 96374; 96375; 99285; J2060; J2405; J7030; Q0162

== ENCOUNTER 2021-06-22 10:19 | Emergency (ER) | payer MEDICAID ==
[~2021-06-22] VITALS: Ht 180.3 cm; Wt 95.3 kg
[2021-06-22] MEDS ORDERED: THIAMINE 100mg/ml INJ (200mg/2ml VIAL) IV ONE (11:00)
[2021-06-22] MEDS ORDERED: ASPirin 81 mg TAB PO ONE (11:00)
[2021-06-22] MEDS ORDERED: SODIUM CHLORIDE 0.9% 2,000 ML IV ONE (11:45)
[2021-06-22 12:04] LABS: Albumin 3.8 g/dL (3.4-5.0); Calcium 8.5 mg/dL (8.5-10.1)
[2021-06-22 12:08] LABS: BUN/Creatinine Ratio 18.1; Bilirubin, Total 1.1 mg/dL (0.2-1.0); Total Protein 7.8 g/dL (6.4-8.2)
[2021-06-22 12:41] LABS: Basophils # (auto) 0.1 10 ^3/uL (0-0.2); Basophils % (auto) 0.7 % (0.0-2.0); Eosinophils # (auto) 0 10 ^3/uL (0-0.8); Eosinophils % (auto) 0.3 % (0.0-7.0); Hematocrit 44.8 % (41.0-53.0); Hemoglobin 15.3 g/dL (13.5-17.5); Lymphocytes % (auto) 23.1 % (10.0-50.0); Mean Corpuscular Hemoglobin 30.7 pg (28.0-32.0); Mean Corpuscular Hgb Conc. 34.1 g/dL (32.0-36.0); Mean Corpuscular Volume 90.1 fL (80.0-100.0); Monocytes # (auto) 0.6 10 ^3/uL (0-1.3); Monocytes % (auto) 6.8 % (0.0-12.0); Neutrophils # (auto) 5.9 10 ^3/uL (1.6-8.6); Neutrophils % (auto) 69.1 % (37.0-80.0); Nucleated Red Blood Cells % 0.1 %; Red Blood Cells 4.97 10^6/uL (4.5-5.90); Red Cell Distribution Width 14.8 % (11.8-14.3); White Blood Cell 8.5 10^3/uL (4.4-10.8)
[2021-06-22] MEDS ORDERED: LORazepam 2MG/ML-1ML VIAL IV ONE (12:45)
[2021-06-22 15:00] VITALS: BP 129/76
[2021-06-22 16:33] LABS: Urine Bacteria NONE SEEN /hpf (None Seen); Urine Blood Negative /uL (Negative); Urine Hyaline Cast FEW /lpf (0 - 2); Urine Mucus FEW (None Seen); Urine Specific Gravity 1.014 (1.001-1.035); Urine WBC 1 /hpf (0 - 3)
== END 2021-06-22 15:28 | disposition home or self-care (01) ==
LOC: ER 10:19 → EDBD 10:19 → ER 15:28
DX: F41.9 Anxiety disorder, unspecified (principal); F10.129 Alcohol abuse with intoxication, unspecified; K21.9 Gastro-esophageal reflux disease without esophagitis; I10 Essential (primary) hypertension; F17.210 Nicotine dependence, cigarettes, uncomplicated; Y90.8 Blood alcohol level of 240 mg/100 ml or more
CPT/HCPCS: 36415; 80053; 80320; 81001; 84484; 85025; 93005; 96361; 96374; 96375; 99285; J2060; J3411; J7030

== ENCOUNTER 2022-06-07 03:42 | Inpatient (IN) | payer MEDICAID ==
[~2022-06-07] VITALS: Ht 175.3 cm; Wt 94.0 kg
[2022-06-07 04:44] LABS: Albumin 4.1 g/dL (3.4-5.0); Calcium 9.2 mg/dL (8.5-10.1); Magnesium 2.4 mg/dL (1.6-2.6); Potassium 3.9 mmol/L (3.5-5.1)
[2022-06-07 04:47] LABS: BUN/Creatinine Ratio 11.9 (10.0-20.0); Bilirubin, Total 0.9 mg/dL (0.2-1.0)
[2022-06-07 04:58] LABS: Basophils # (auto) 0.1 10 ^3/uL (0-0.2); Basophils % (auto) 0.9 % (0.0-2.0); Eosinophils # (auto) 0.1 10 ^3/uL (0-0.8); Eosinophils % (auto) 1.5 % (0.0-7.0); Hematocrit 46.9 % (41.0-53.0); Hemoglobin 15.8 g/dL (13.5-17.5); Lymphocytes # (auto) 2.2 10 ^3/uL (0.4-5.4); Lymphocytes % (auto) 27.7 % (10.0-50.0); Mean Corpuscular Hemoglobin 31.4 pg (28.0-32.0); Mean Corpuscular Hgb Conc. 33.7 g/dL (32.0-36.0); Mean Corpuscular Volume 93.3 fL (80.0-100.0); Monocytes # (auto) 0.5 10 ^3/uL (0-1.3); Monocytes % (auto) 6.5 % (0.0-12.0); Neutrophils # (auto) 4.9 10 ^3/uL (1.6-8.6); Neutrophils % (auto) 63.4 % (37.0-80.0); Red Blood Cells 5.03 10^6/uL (4.5-5.90); White Blood Cell 7.8 10^3/uL (4.4-10.8)
[2022-06-07] MEDS ORDERED: SODIUM CHLORIDE 0.9% 1,000 ML IV ONE ×2 (09:00→15:45)
[2022-06-07] MEDS ORDERED: LORazepam 2MG/ML-1ML VIAL IV ONE (11:00)
[2022-06-07] MEDS ORDERED: ONDANSETRON HCL 4 MG/2 ML VIAL IV PRN (15:45)
[2022-06-07] MEDS ORDERED: MORPHINE SULFATE INJ 2 MG/ml SYRG IV PRN (15:45)
[2022-06-07] MEDS ORDERED: NITROGLYCERIN 0.4 MG SL TAB SL PRN (15:45)
[2022-06-07] MEDS ORDERED: ACETAMINOPHEN 325 MG TAB PO PRN (15:45)
[2022-06-07] MEDS: chlordiazePOXIDE HCL 25 MG CAP PO PRN (17:36)
[2022-06-07] MEDS: GABAPENTIN 300 MG CAP PO SCH (22:00)
[2022-06-08] MEDS: chlordiazePOXIDE HCL 25 MG CAP PO PRN ×2 (01:41→08:20)
[2022-06-08] MEDS: GABAPENTIN 300 MG CAP PO SCH ×2 (08:20→14:00)
[2022-06-08 11:17] LABS: Amphetamine Screen, Urine NEGATIVE (NEGATIVE); Barbiturate Scree,Urine NEGATIVE (NEGATIVE); Benzodiazephine Screen, Urine POSITIVE (NEGATIVE); Cannabinoid Screen, Urine NEGATIVE (NEGATIVE); Cocaine Screen, Urine NEGATIVE (NEGATIVE); Opiate Scree,Urine NEGATIVE (NEGATIVE); Phencyclidine Screen, Urine NEGATIVE (NEGATIVE)
[2022-06-08] MEDS ORDERED: FOLIC ACID 1 MG, MULTIPLE VITAMIN 10 ML, MAGNESIUM SULF SDV 50% 8 MEQ, THIAMINE INJ 100... INJ ONE ×5 (12:00)
[2022-06-08] MEDS ORDERED: FOLI1TAB6 PO (16:08)
[2022-06-08] MEDS ORDERED: THIA100T5 PO (16:08)
[2022-06-08] MEDS ORDERED: MET25T PO (16:10)
[2022-06-08] MEDS ORDERED: METOPROLOL TARTRATE 25 MG TAB PO SCH (16:15)
[2022-06-08 18:00] VITALS: BP 149/86
== END 2022-06-08 19:01 | disposition home or self-care (01) | DRG 280 ==
LOC: EDBD 03:42 → ER 03:42 → OVERFLOW 15:50
PROVIDERS: ADMIT Internal Medicine; ATTEND Internal Medicine
DX: K70.9 Alcoholic liver disease, unspecified (principal); F10.939 Alcohol use, unspecified with withdrawal, unspecified; I10 Essential (primary) hypertension; F17.210 Nicotine dependence, cigarettes, uncomplicated; F41.9 Anxiety disorder, unspecified; F32.A Depression, unspecified; Z20.822 Contact with and (suspected) exposure to COVID-19; K21.9 Gastro-esophageal reflux disease without esophagitis; Z82.49 Family history of ischemic heart disease and other diseases of the circulatory system; Z86.711 Personal history of pulmonary embolism
CPT/HCPCS: 36415; 71045; 80053; 80307; 80320; 83735; 83880; 84484; 85025; 87426; 93005; 96361; 96374; G0378

== ENCOUNTER 2022-07-28 19:52 | Inpatient (IN) | payer MEDICAID ==
[~2022-07-28] VITALS: Ht 175.3 cm; Wt 69.0 kg
[~2022-07-28 19:52] MED LIST changes: +FOLI1TAB6 PO; +MET25T PO; +THIA100T5 PO
[2022-07-28 20:45] LABS: Basophils # (auto) 0.1 10 ^3/uL (0-0.2); Basophils % (auto) 0.9 % (0.0-2.0); Eosinophils # (auto) 0.1 10 ^3/uL (0-0.8); Eosinophils % (auto) 1.8 % (0.0-7.0); Hematocrit 45.6 % (41.0-53.0); Hemoglobin 15.6 g/dL (13.5-17.5); Lymphocytes # (auto) 2.1 10 ^3/uL (0.4-5.4); Lymphocytes % (auto) 28.1 % (10.0-50.0); Mean Corpuscular Hemoglobin 31.3 pg (28.0-32.0); Mean Corpuscular Hgb Conc. 34.3 g/dL (32.0-36.0); Mean Corpuscular Volume 91.2 fL (80.0-100.0); Monocytes # (auto) 0.6 10 ^3/uL (0-1.3); Monocytes % (auto) 7.6 % (0.0-12.0); Neutrophils # (auto) 4.5 10 ^3/uL (1.6-8.6); Neutrophils % (auto) 61.6 % (37.0-80.0); Nucleated Red Blood Cells % 0.1 %; Red Cell Distribution Width 14.5 % (11.8-14.3); White Blood Cell 7.4 10^3/uL (4.4-10.8)
[2022-07-28 21:01] LABS: INR 0.97 (0.9-1.15); Partial Thromboplastin Time 28.8 sec (24.6-33.4)
[2022-07-28 21:04] LABS: Salicylate < 1.7 mg/dL (2.8-20.0)
[2022-07-28 21:12] LABS: Acetaminophen < 2.0 ug/mL (10-30)
[2022-07-28 22:01] LABS: Albumin 4.2 g/dL (3.4-5.0); Calcium 9.2 mg/dL (8.5-10.1); Magnesium 2.1 mg/dL (1.6-2.6); Potassium 3.6 mmol/L (3.5-5.1)
[2022-07-28 22:20] LABS: Bilirubin, Total 1.1 mg/dL (0.2-1.0)
[2022-07-28 22:28] LABS: BUN/Creatinine Ratio 12.5 (10.0-20.0)
[2022-07-29] MEDS ORDERED: LORazepam 2MG/ML-1ML VIAL IV ONE (06:15)
[2022-07-29] MEDS ORDERED: chlordiazePOXIDE HCL 25 MG CAP PO ONE (06:15)
[2022-07-29] MEDS ORDERED: SODIUM CHLORIDE 0.9% 1,000 ML IV ONE ×2 (06:15)
[2022-07-29 06:34] LABS: Urine Bacteria NONE SEEN /hpf (None Seen); Urine Blood 1+ /uL (Negative); Urine Hyaline Cast MOD /lpf (0 - 2); Urine Mucus FEW (None Seen); Urine Specific Gravity 1.028 (1.001-1.035); Urine WBC 1 /hpf (0 - 3)
[2022-07-29 06:44] LABS: Amphetamine Screen, Urine NEGATIVE (NEGATIVE); Barbiturate Scree,Urine NEGATIVE (NEGATIVE); Benzodiazephine Screen, Urine NEGATIVE (NEGATIVE); Cannabinoid Screen, Urine NEGATIVE (NEGATIVE); Cocaine Screen, Urine NEGATIVE (NEGATIVE); Opiate Scree,Urine NEGATIVE (NEGATIVE); Phencyclidine Screen, Urine NEGATIVE (NEGATIVE)
[2022-07-29] MEDS ORDERED: LORazepam 2MG/ML-1ML VIAL IV PRN (09:15)
[2022-07-29] MEDS ORDERED: THIAMINE HCL 100 MG TAB PO ONE (09:15)
[2022-07-29] MEDS ORDERED: MORPHINE SULFATE INJ 2 MG/ml SYRG IV PRN (09:15)
[2022-07-29] MEDS ORDERED: ONDANSETRON HCL 4 MG/2 ML VIAL IV PRN (09:15)
[2022-07-29] MEDS ORDERED: MULTIPLE VITAMIN TAB PO ONE (09:15)
[2022-07-29] MEDS ORDERED: NITROGLYCERIN 0.4 MG SL TAB SL PRN (09:15)
[2022-07-29] MEDS ORDERED: FOLIC ACID 1 MG TAB PO ONE (09:15)
[2022-07-29] MEDS ORDERED: hydrALAZINE HCL 20 MG/ML VL IV PRN (09:30)
[2022-07-29] MEDS: METOPROLOL TARTRATE 25 MG TAB PO SCH ×2 (09:51→22:21)
[2022-07-29] MEDS: chlordiazePOXIDE HCL 25 MG CAP PO SCH ×2 (09:56→18:58)
[2022-07-29] MEDS: PANTOPRAZOLE 40 MG TAB PO SCH (09:59)
[2022-07-30] MEDS: chlordiazePOXIDE HCL 25 MG CAP PO SCH (04:11)
[2022-07-30 06:33] LABS: Basophils # (auto) 0.1 10 ^3/uL (0-0.2); Basophils % (auto) 0.9 % (0.0-2.0); Eosinophils # (auto) 0.3 10 ^3/uL (0-0.8); Hematocrit 43.3 % (41.0-53.0); Lymphocytes % (auto) 29.7 % (10.0-50.0); Mean Corpuscular Hemoglobin 31.7 pg (28.0-32.0); Mean Corpuscular Hgb Conc. 34.5 g/dL (32.0-36.0); Mean Corpuscular Volume 91.7 fL (80.0-100.0); Monocytes # (auto) 0.4 10 ^3/uL (0-1.3); Monocytes % (auto) 6.6 % (0.0-12.0); Neutrophils # (auto) 3.9 10 ^3/uL (1.6-8.6); Neutrophils % (auto) 58.8 % (37.0-80.0); Nucleated Red Blood Cells % 0.1 %; Red Blood Cells 4.73 10^6/uL (4.5-5.90); Red Cell Distribution Width 14.2 % (11.8-14.3); White Blood Cell 6.7 10^3/uL (4.4-10.8)
[2022-07-30 06:58] LABS: Albumin 4.2 g/dL (3.4-5.0); Calcium 9.3 mg/dL (8.5-10.1); Potassium 3.2 mmol/L (3.5-5.1)
[2022-07-30 07:04] LABS: BUN/Creatinine Ratio 16.3 (10.0-20.0); Bilirubin, Total 1.6 mg/dL (0.2-1.0); Total Protein 7.9 g/dL (6.4-8.2)
[2022-07-30] MEDS ORDERED: THIAMINE HCL 100 MG TAB PO SCH (10:00)
[2022-07-30] MEDS ORDERED: FOLIC ACID 1 MG TAB PO SCH (10:00)
[2022-07-30] MEDS ORDERED: chlordiazePOXIDE HCL 25 MG CAP PO SCH ×2 (10:00→14:00)
[2022-07-30] MEDS ORDERED: GABAPENTIN 300 MG CAP PO SCH (10:45)
[2022-07-30] MEDS ORDERED: chlordiazePOXIDE HCL 25 MG CAP PO PRN (10:45)
[2022-07-30] MEDS ORDERED: POTASSIUM CHL 20 Meq TABLET PO ONE (10:45)
[2022-07-30] MEDS: MULTIPLE VITAMIN TAB PO SCH (11:14)
[2022-07-30] MEDS: METOPROLOL TARTRATE 25 MG TAB PO SCH ×2 (11:17→22:18)
[2022-07-30] MEDS: PANTOPRAZOLE 40 MG TAB PO SCH (11:22)
[2022-07-30] MEDS ORDERED: FOLIC ACID 1 MG, MULTIPLE VITAMIN 10 ML, MAGNESIUM SULF SDV 50% 8 MEQ, THIAMINE INJ 100... INJ SCH ×5 (12:00)
[2022-07-30] MEDS: POTASSIUM CHL 20MEQ/100ML 100 ML IV SCH ×2 (12:02→13:45)
[2022-07-30 12:30] VITALS: BP 139/78
[2022-07-30 17:00] VITALS: BP 145/94
[2022-07-31 00:46] VITALS: BP 140/86
[2022-07-31] MEDS: chlordiazePOXIDE HCL 25 MG CAP PO SCH ×3 (00:53→12:00)
[2022-07-31 05:58] LABS: Basophils # (auto) 0 10 ^3/uL (0-0.2); Basophils % (auto) 0.6 % (0.0-2.0); Eosinophils # (auto) 0.3 10 ^3/uL (0-0.8); Eosinophils % (auto) 4.8 % (0.0-7.0); Hematocrit 39.1 % (41.0-53.0); Hemoglobin 13.9 g/dL (13.5-17.5); Lymphocytes % (auto) 27.5 % (10.0-50.0); Mean Corpuscular Hemoglobin 32.6 pg (28.0-32.0); Mean Corpuscular Hgb Conc. 35.5 g/dL (32.0-36.0); Mean Corpuscular Volume 91.8 fL (80.0-100.0); Monocytes # (auto) 0.5 10 ^3/uL (0-1.3); Monocytes % (auto) 7.3 % (0.0-12.0); Neutrophils # (auto) 4.2 10 ^3/uL (1.6-8.6); Neutrophils % (auto) 59.8 % (37.0-80.0); Nucleated Red Blood Cells % 0.1 %; Red Blood Cells 4.26 10^6/uL (4.5-5.90); Red Cell Distribution Width 14.7 % (11.8-14.3); White Blood Cell 7.1 10^3/uL (4.4-10.8)
[2022-07-31 06:27] LABS: BUN/Creatinine Ratio 12.9 (10.0-20.0); Calcium 9.2 mg/dL (8.5-10.1); Potassium 3.5 mmol/L (3.5-5.1)
[2022-07-31 08:55] VITALS: BP 125/75
[2022-07-31] MEDS ORDERED: chlordiazePOXIDE HCL 25 MG CAP PO SCH ×2 (10:00→22:00)
[2022-07-31] MEDS: PANTOPRAZOLE 40 MG TAB PO SCH (10:27)
[2022-07-31] MEDS: METOPROLOL TARTRATE 25 MG TAB PO SCH ×2 (10:27→21:51)
[2022-07-31] MEDS: MULTIPLE VITAMIN TAB PO SCH (10:27)
[2022-07-31 12:30] VITALS: BP 143/93
[2022-07-31] MEDS ORDERED: GABAPENTIN 300 MG CAP PO ONE (12:30)
[2022-07-31 16:43] VITALS: BP 142/85
[2022-07-31 18:49] LABS: Albumin 3.8 g/dL (3.4-5.0); Bilirubin, Total 0.9 mg/dL (0.2-1.0); Calcium 9.4 mg/dL (8.5-10.1); Potassium 3.6 mmol/L (3.5-5.1); Total Protein 7.5 g/dL (6.4-8.2)
[2022-07-31] MEDS: GABAPENTIN 300 MG CAP PO SCH (21:50)
[2022-07-31 22:00] VITALS: BP 151/82
[2022-08-01 05:00] VITALS: BP 118/70
[2022-08-01] MEDS: GABAPENTIN 300 MG CAP PO SCH ×2 (05:47→14:34)
[2022-08-01 06:11] LABS: Potassium 3.2 mmol/L (3.5-5.1)
[2022-08-01 06:19] LABS: Albumin 3.8 g/dL (3.4-5.0); BUN/Creatinine Ratio 12.7 (10.0-20.0); Bilirubin, Total 0.7 mg/dL (0.2-1.0); Calcium 8.9 mg/dL (8.5-10.1); Total Protein 7.1 g/dL (6.4-8.2)
[2022-08-01 06:25] LABS: Basophils # (auto) 0 10 ^3/uL (0-0.2); Basophils % (auto) 0.7 % (0.0-2.0); Eosinophils # (auto) 0.4 10 ^3/uL (0-0.8); Eosinophils % (auto) 5.5 % (0.0-7.0); Hematocrit 38.7 % (41.0-53.0); Hemoglobin 13.5 g/dL (13.5-17.5); Lymphocytes # (auto) 1.9 10 ^3/uL (0.4-5.4); Lymphocytes % (auto) 27.1 % (10.0-50.0); Mean Corpuscular Hemoglobin 32.1 pg (28.0-32.0); Mean Corpuscular Hgb Conc. 34.7 g/dL (32.0-36.0); Mean Corpuscular Volume 92.3 fL (80.0-100.0); Monocytes # (auto) 0.3 10 ^3/uL (0-1.3); Monocytes % (auto) 4.8 % (0.0-12.0); Neutrophils # (auto) 4.3 10 ^3/uL (1.6-8.6); Neutrophils % (auto) 61.9 % (37.0-80.0); Nucleated Red Blood Cells % 0.2 %; Red Cell Distribution Width 14.6 % (11.8-14.3); White Blood Cell 6.9 10^3/uL (4.4-10.8)
[2022-08-01] MEDS ORDERED: chlordiazePOXIDE HCL 25 MG CAP PO SCH (07:00)
[2022-08-01 09:19] VITALS: BP 138/66
[2022-08-01] MEDS: METOPROLOL TARTRATE 25 MG TAB PO SCH (10:28)
[2022-08-01] MEDS: PANTOPRAZOLE 40 MG TAB PO SCH (10:28)
[2022-08-01] MEDS: MULTIPLE VITAMIN TAB PO SCH (10:28)
[2022-08-01] MEDS ORDERED: POTASSIUM CHL 20 Meq TABLET PO ONE (14:30)
[2022-08-01] MEDS ORDERED: THIA100T5 PO ×2 (14:55)
[2022-08-01] MEDS ORDERED: MET25T PO ×2 (14:55)
[2022-08-01] MEDS ORDERED: GABA300C10 PO ×2 (14:55)
[2022-08-01] MEDS ORDERED: FOLI1TAB6 PO ×2 (14:55)
[2022-08-01 16:13] VITALS: BP 143/93
[2022-08-01] MEDS ORDERED: GABAPENTIN 300 MG CAP PO ONE (18:30)
[2022-08-04 13:38] LABS: Hepatitis A Ab IgM Negative
[2022-08-04 13:39] LABS: Hepatitis B Core IgM Negative; Hepatitis C Antibody Negative (Negative)
== END 2022-08-01 18:32 | disposition home or self-care (01) | DRG 203 ==
LOC: EDBD 19:52 → ER 19:56 → TELE 07-29 09:17 → TELE-CENTR 07-30 09:44
PROVIDERS: ADMIT Nurse Practitioner Family; ATTEND Internal Medicine
DX: R07.89 Other chest pain (principal); E87.1 Hypo-osmolality and hyponatremia; E87.6 Hypokalemia; F10.239 Alcohol dependence with withdrawal, unspecified; F32.A Depression, unspecified; I10 Essential (primary) hypertension; F17.210 Nicotine dependence, cigarettes, uncomplicated; K21.9 Gastro-esophageal reflux disease without esophagitis; Y90.9 Presence of alcohol in blood, level not specified; F41.9 Anxiety disorder, unspecified; Z86.711 Personal history of pulmonary embolism; Z82.49 Family history of ischemic heart disease and other diseases of the circulatory system
CPT/HCPCS: 36415; 71045; 74176; 76705; 80048; 80053; 80074; 80307; 80320; 80329; 81001; 82140; 83735; 83880; 84484; 85025; 85610; 85730; 93005; 93306; 96361; 96374; G0378; J3480